=== PATIENT | female | born 1985 | race Caucasian/White ===

== ENCOUNTER 2016-11-18 07:14 | Emergency (ER) | payer MEDICAID ==
--- NOTE | 2016-11-18 07:34 | EDM.PDOC ---
ED HPI GENERAL MEDICAL PROBLEM - General Chief Complaint: Back Pain or Injury Stated Complaint: BACK PAIN Time Seen by Provider: 11/18/16 07:28 Source of Information: Reports: Patient History Limitations: Reports: No Limitations - History of Present Illness INITIAL COMMENTS - FREE TEXT/NARRATIVE: 31 yo female presents with left lower back pain. States that she was at work and picked up a coffee pot and when she went to walk away her "back locked up on me and I couldnt move". She took two Flexerils with no relief. Has a history of herniated disk and previous back surgeries. C/o pain to left leg with some numbness. No other complaints currently. 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) 9 Pain Score (Numeric/FACES): 9 - Related Data Allergies Allergy/AdvReac Type Severity Reaction Status Date / Time No Known Allergies Allergy Verified 02/08/16 11:55 Home Meds: Home Meds Albuterol Sulfate [Albuterol Sulfate HFA] 2 puff INH ASDIRECTED PRN 02/26/13 [ History] FLUoxetine [PROzac] DAILY 11/18/16 [History] Past Medical History Other HEENT History: wears glasses Cardiovascular History: Reports: None Respiratory History: Reports: Asthma Other Gastrointestinal History: food poisoning Genitourinary History: Reports: None 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 Neurological History: Reports: Migraines Psychiatric History: Reports: Depression Endocrine/Metabolic History: Reports: Obesity/BMI 30+ Hematologic History: Reports: None Oncologic (Cancer) History: Reports: None Dermatologic History: Reports: Eczema - Infectious Disease History Infectious Disease History: Reports: Chicken Pox - Past Surgical History HEENT Surgical History: Reports: Other (See Below) Musculoskeletal Surgical History: Reports: Other (See Below) Social & Family History - Family History Family Medical History: Noncontributory - Tobacco Use Smoking Status *Q: Current Every Day Smoker Years of Tobacco use: 16 Packs/Tins Daily: 0.5 Month Tobacco Last Used: t Second Hand Smoke Exposure: Yes - Caffeine Use Caffeine Use: Reports: Coffee, Energy Drinks, Soda - Alcohol Use Days Per Week of Alcohol Use: 1 Number of Drinks Per Day: 1 Total Drinks Per Week: 1 - Recreational Drug Use Recreational Drug Use: No - Sexual History Sexual History: Reports: Sexually Active - Living Situation & Occupation Living situation: Reports: with Significant Other Occupation: Unemployed ED ROS GENERAL - Review of Systems Review Of Systems: ROS reveals no pertinent complaints other than HPI. ED EXAM,LOWER BACK PAIN/INJURY - Physical Exam Exam: See Below Exam Limited By: No Limitations General Appearance: Alert, WD/WN, No Apparent Distress Eye Exam: Bilateral Eye: Normal Inspection Neck: Normal Inspection, Supple, Non-Tender, Full Range of Motion Respiratory/Chest: No Respiratory Distress, Lungs Clear, Normal Breath Sounds, No Accessory Muscle Use, Chest Non-Tender Cardiovascular: Normal Peripheral Pulses, Regular Rate, Rhythm, No Edema, No Gallop, No JVD, No Murmur, No Rub GI/Abdominal: Normal Bowel Sounds, Soft, Non-Tender, No Organomegaly, No Distention, No Abnormal Bruit, No Mass Back Exam: Normal Inspection, Full Range of Motion, Muscle Spasm (left lower back) Extremities: Normal Inspection, Non-Tender, No Pedal Edema, Normal Capillary Refill, Leg Pain, Limited Range of Motion (left leg, unable to completely extend while flat due to pain), Other (No saddle anasthesia) Neurological: Alert, Normal Mood/Affect, Normal Dorsiflexion, CN II-XII Intact, Normal Plantar Flexion, Normal Gait, Normal Reflexes, No Motor/Sensory Deficits , Oriented x 3, Straight Leg Raise (L) Psychiatric: Normal Affect, Normal Mood Skin Exam: Warm, Dry, Intact, Normal Color, No Rash Lymphatic: No Adenopathy Course - Vital Signs Last Recorded V/S: Last Vital Signs Temp 97.2 F 11/18/16 07:31 Pulse 85 11/18/16 07:31 Resp 20 11/18/16 07:31 BP 150/86 H 11/18/16 07:31 Pulse Ox 99 11/18/16 07:31 - Orders/Labs/Meds Orders: Active Orders 24 hr Category Date Time Status Lumbar Spine 2 or 3V [CR] Urgent Exams 11/18/16 07:39 Ordered Orphenadrine [Norflex] Med 11/18/16 07:45 Active 60 mg IM Q12H Medication Orders Orphenadrine Citrate (Norflex) 60 mg IM Q12H ZURI Last Admin: 11/18/16 07:53 Dose: 60 mg Meds: Medications Generic Name Dose Route Start Last Admin Trade Name Candice PRN Reason Stop Dose Admin Orphenadrine Citrate 60 mg 11/18/16 07:45 11/18/16 07:53 Norflex IM 60 mg Q12H ZURI Administration Discontinued Medications Generic Name Dose Route Start Last Admin Trade Name Freq PRN Reason Stop Dose Admin Gabapentin 300 mg 11/18/16 08:24 11/18/16 08:38 Neurontin PO 11/18/16 08:25 300 mg ONETIME ONE Administration Ketorolac Tromethamine 30 mg 11/18/16 07:40 11/18/16 07:54 Toradol IM 11/18/16 07:41 30 mg ONETIME ONE Administration - Radiology Interpretation Free Text/Narrative:: Mild osteophyte at T12 and L5. No acute fractures noted. No disc space narrowing noted. - Re-Assessments/Exams Free Text/Narrative Re-Assessment/Exam: 11/18/16 08:22 Pt states that she is still having sharp pinching pain to lower back. will add gabapentin to regimen Departure - Departure Time of Disposition: 08:48 Disposition: Home, Self-Care 01 Condition: Good Clinical Impression: Sciatica Qualifiers: Laterality: left Qualified Code(s): M54.32 - Sciatica, left side - Discharge Information Instructions: Sciatica, Back Pain, Adult, [id number] Forms: ED Department Discharge Additional Instructions: get some rest the next few days. Stay hydrated with water. Take medications as needed. Follow up with your PCP or in clinic. - My Orders Last 24 Hours: My Active Orders 11/18/16 07:39 Lumbar Spine 2 or 3V [CR] Urgent 11/18/16 07:45 Orphenadrine [Norflex] 60 mg IM Q12H - Assessment/Plan Last 24 Hours: My Active Orders 11/18/16 07:39 Lumbar Spine 2 or 3V [CR] Urgent 11/18/16 07:45 Orphenadrine [Norflex] 60 mg IM Q12H
[2016-11-18 07:37] VITALS: BP 150/86
[2016-11-18] MEDS ORDERED: Ketorolac 30 MG/ML SDV IM ONE (07:40)
[2016-11-18] MEDS ORDERED: Gabapentin 300 MG Cap PO ONE (08:24)
== END 2016-11-18 08:51 | disposition home or self-care (01) ==
LOC: DL.ED 07:14
DX: M54.42 Lumbago with sciatica, left side (principal); J45.909 Unspecified asthma, uncomplicated; F32.9 Major depressive disorder, single episode, unspecified; E66.9 Obesity, unspecified; F17.210 Nicotine dependence, cigarettes, uncomplicated; Z79.899 Other long term (current) drug therapy; Z68.37 Body mass index [BMI] 37.0-37.9, adult
CPT/HCPCS: 72100; 96372; 99283; A9270; J1885; J2360

== ENCOUNTER 2017-02-11 16:04 | Emergency (ER) | payer BC ==
[2017-02-11 16:12] VITALS: BP 135/89
[2017-02-11] MEDS ORDERED: Clindamycin HCl 150 MG Cap PO ONE (17:20)
--- NOTE | 2017-02-11 17:28 | EDM.PDOC ---
ED HPI GENERAL MEDICAL PROBLEM - General Chief Complaint: Skin Complaint Stated Complaint: BREAST PROBLEMS,[id number] Time Seen by Provider: 02/11/17 17:22 Source of Information: Reports: Patient History Limitations: Reports: No Limitations - History of Present Illness INITIAL COMMENTS - FREE TEXT/NARRATIVE: This 31 yo female patient reports to the ED with swelling and pain in her right breast. The patient reports she noticed a small pimple on her right nipple 5 days ago. The patient reports increased pain and swelling in the area over the past 5 days. The patient reports she has not had any drainage from the area. Onset: Gradual Onset Date: 02/07/17 Duration: Constant, Getting Worse Location: Reports: Chest (right breast) Quality: Reports: Ache, Sharp, Throbbing Severity: Moderate Improves with: Reports: None Worsens with: Reports: None Right Breast Pain Score (Numeric/FACES): 8 - Related Data Allergies Allergy/AdvReac Type Severity Reaction Status Date / Time No Known Allergies Allergy Verified 02/11/17 16:16 Home Meds: Home Meds FLUoxetine [PROzac] 20 mg PO DAILY 11/18/16 [History] Ibuprofen 600 mg PO ASDIRECTED PRN 02/11/17 [History] Past Medical History HEENT History: Reports: Impaired Vision Other HEENT History: wears glasses Cardiovascular History: Reports: None Respiratory History: Reports: Asthma Other Gastrointestinal History: food poisoning Genitourinary History: Reports: None 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 Musculoskeletal History: Reports: None Neurological History: Reports: Migraines Psychiatric History: Reports: Depression Endocrine/Metabolic History: Reports: Obesity/BMI 30+ Hematologic History: Reports: None Immunologic History: Reports: None Oncologic (Cancer) History: Reports: None Dermatologic History: Reports: Eczema - Infectious Disease History Infectious Disease History: Reports: Chicken Pox - Past Surgical History Head Surgeries/Procedures: Reports: None HEENT Surgical History: Reports: Other (See Below) Social & Family History - Family History Family Medical History: Noncontributory - Tobacco Use Smoking Status *Q: Current Every Day Smoker Years of Tobacco use: 14 Packs/Tins Daily: 0.5 Month Tobacco Last Used: t Second Hand Smoke Exposure: No - Caffeine Use Caffeine Use: Reports: Coffee, Soda - Alcohol Use Days Per Week of Alcohol Use: 1 Number of Drinks Per Day: 1 Total Drinks Per Week: 1 - Recreational Drug Use Recreational Drug Use: No Recreational Drug Type: Reports: Marijuana/Hashish - Sexual History Sexual History: Reports: Sexually Active - Living Situation & Occupation Living situation: Reports: with Significant Other Occupation: Unemployed ED ROS GENERAL - Review of Systems Review Of Systems: ROS reveals no pertinent complaints other than HPI. ED EXAM, SKIN/RASH Exam: See Below Exam Limited By: Other General Appearance: WD/WN, Moderate Distress, Obese Eye Exam: Bilateral Eye: EOMI, Normal Inspection, PERRL Ears: Normal External Exam, Normal Canal, Hearing Grossly Normal, Normal TMs Nose: Normal Inspection, Normal Mucosa, No Blood Throat/Mouth: Normal Inspection, Normal Lips, Normal Teeth, Normal Gums, Normal Oropharynx, Normal Voice, No Airway Compromise Head: Atraumatic, Normocephalic Neck: Normal Inspection, Supple, Non-Tender, Full Range of Motion Respiratory/Chest: No Respiratory Distress, Lungs Clear, Normal Breath Sounds, No Accessory Muscle Use, Chest Non-Tender Cardiovascular: Normal Peripheral Pulses, Regular Rate, Rhythm, No Edema, No Gallop, No JVD, No Murmur, No Rub GI/Abdominal: Normal Bowel Sounds, Soft, Non-Tender, No Organomegaly, No Distention, No Abnormal Bruit, No Mass (Female) Exam: Deferred Rectal (Female) Exam: Deferred Back Exam: Normal Inspection, Full Range of Motion, NT Extremities: Normal Inspection, Normal Range of Motion, Non-Tender, No Pedal Edema, Normal Capillary Refill Neurological: Alert, Oriented, CN II-XII Intact, Normal Cognition, Normal Gait, Normal Reflexes, No Motor/Sensory Deficits Psychiatric: Normal Affect, Normal Mood Skin: Erythema (right ) Location, Skin: Other (right breast) Characteristics: Erythematous Associated features: Warmth, Tenderness, Swelling Lymphatic: No Adenopathy Course - Vital Signs Last Recorded V/S: Last Vital Signs Temp 36.4 C 02/11/17 16:11 Pulse 88 02/11/17 16:11 Resp 18 02/11/17 16:11 BP 135/89 02/11/17 16:11 Pulse Ox 99 02/11/17 16:11 - Orders/Labs/Meds Meds: Medications Discontinued Medications Generic Name Dose Route Start Last Admin Trade Name Freq PRN Reason Stop Dose Admin Clindamycin HCl 300 mg 02/11/17 17:20 Cleocin PO 02/11/17 17:21 ONETIME ONE Departure - Departure Time of Disposition: 17:28 Disposition: Home, Self-Care 01 Condition: Fair Clinical Impression: Breast abscess - Discharge Information Instructions: Abscess, [id number] Care Plan Goals: The patient was advised of the examination results during the visit. The patient was given an oral dose of Clindamycin (300 mg) while in the ED. The patient was discharged with a script for Clindamycin (300 mg) #56 to take 1 by mouth 4 times per day for 14 days. The patient should apply warm packs to the area. The patient should follow-up with her primary care facility in 5-10 days for continued evaluation and further management. If the patient has any additional symptoms or concerns, the patient should visit her primary care facility or return to the ED.
== END 2017-02-11 17:39 | disposition home or self-care (01) ==
LOC: DL.ED 16:04
DX: N61.1 Abscess of the breast and nipple (principal); F17.210 Nicotine dependence, cigarettes, uncomplicated; Z79.899 Other long term (current) drug therapy
CPT/HCPCS: 99282; A9270

== ENCOUNTER 2018-05-06 05:42 | Inpatient (IN) | payer BC, MEDICAID ==
[2018-05-06] MEDS ORDERED: hydrOXYzine HCl 25 MG Tab PO ONE (08:18)
[2018-05-06] MEDS ORDERED: Nalbuphine 10 MG/1 ML Vial IM ONE (13:47)
[2018-05-06] MEDS ORDERED: Ondansetron 4 MG/2 ML SDV IV PRN (13:49)
[2018-05-06] MEDS ORDERED: Nalbuphine 10 MG/1 ML Vial IV ONE (13:49)
[2018-05-06] MEDS: Lactated Ringers 1,000 ML IV SCH ×2 (14:47→21:32)
[2018-05-06] MEDS ORDERED: fentaNYL 100 MCG/2 ML SDV ONE (14:59)
[2018-05-06] MEDS ORDERED: EPINEPHrine 1 MG/ML SDV ONE (14:59)
[2018-05-06] MEDS ORDERED: Carboprost Tromethamine 250 MCG/1 ML Amp IM PRN (15:00)
[2018-05-06] MEDS ORDERED: Misoprostol 400 MCG (4 X 100 MCG TAB) RECTAL PRN (15:00)
[2018-05-06] MEDS ORDERED: Oxytocin/Normal Saline 30 UNIT/500 ML BAG IV SCH (15:00)
[2018-05-06] MEDS ORDERED: Lactated Ringers 500 ML IV ONE (15:00)
[2018-05-06] MEDS ORDERED: Lidocaine 1% 30 ML SDV INJECT PRN (15:00)
[2018-05-06] MEDS ORDERED: Acetaminophen 325 MG Tab PO PRN (15:00)
[2018-05-06] MEDS ORDERED: Sodium Chloride 0.9% 10 ML Syringe FLUSH PRN (15:00)
[2018-05-06] MEDS ORDERED: Tranexamic Acid 1,000 MG in Sodium Chloride 0.9% 100 ML IV PRN (15:00)
[2018-05-06] MEDS ORDERED: Methylergonovine 0.2 MG/1 ML Amp IM PRN (15:00)
--- NOTE | 2018-05-06 15:11 | PCM.LDHP ---
L&D History of Present Illness - General Date of Service: 05/06/18 (admit H&P) Admit Problem/Dx: Patient Status Order with Admit Dx/Problem 05/06/18 15:01 Patient Status [ADT] Routine Admission Diagnosis/Problem Admission Diagnosis/Problem Labor established term labor 33yo @ 39w6d with onset labor cxns and elevated BP, r/o pre-eclampsia 05/06/18 15:06 Source of Information: Patient, Family, Old Records, Provider, Other ([facility] notes and episode) - History of Present Illness Introduction:: onset cxns about 4 a.m., getting stronger. baby active. no pre-eclampsia sx. no bleeding or LOF increased mucousy discharge noted. Timing/Duration: Reports: minutes: (3-5), gradual onset Location, : Reports: Uterus Severity: Moderate Pain Score: 8 (getting stronger) Associated Symptoms: Reports: vaginal discharge - Related Data Allergies/Adverse Reactions: Allergies Allergy/AdvReac Type Severity Reaction Status Date / Time hydrocodone AdvReac Intermediate Vomiting Verified 05/06/18 06:14 Home Medications: Home Meds Vit Calc,Iron,Folic [ Vitamins] 1 tab PO DAILY 10/19/17 [ History] Past Medical History HEENT History: Reports: Impaired Vision Other HEENT History: wears glasses Cardiovascular History: Reports: None Respiratory History: Reports: Asthma Other Gastrointestinal History: food poisoning Genitourinary History: Reports: UTI, Recurrent 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) Para: 0 LMP (Approximate): Musculoskeletal History: Reports: Back Pain, Chronic, Other (See Below) Other Musculoskeletal History: herniated disc Neurological History: Reports: Migraines Psychiatric History: Reports: Depression Endocrine/Metabolic History: Reports: Obesity/BMI 30+ Hematologic History: Reports: None Immunologic History: Reports: None Oncologic (Cancer) History: Reports: None Dermatologic History: Reports: Chronic Cellulitis (breast abscess--right side, drained multiple times), Eczema - Infectious Disease History Infectious Disease History: Reports: Chicken Pox - Past Surgical History Head Surgeries/Procedures: Reports: None HEENT Surgical History: Reports: Other (See Below) Female Surgical History: Reports: Other (See Below) (chronic breast abscess right side) Dermatological Surgical History: Reports: Other (See Below) (breast abscess) Social & Family History - Family History Family Medical History: Noncontributory - Tobacco Use Smoking Status *Q: Current Every Day Smoker Years of Tobacco use: 16 Packs/Tins Daily: 0.5 Used Tobacco, but Quit: No Second Hand Smoke Exposure: Yes - Tobacco Core Measures Tobacco Use/Smoking Within Last 30 Days: Yes Smoking Frequency Within Last 30 Days: Reports: Five or More Cigarettes Per Day - Caffeine Use Caffeine Use: Reports: Coffee, Soda - Alcohol Use Alcohol Use Comment: denies - Recreational Drug Use Recreational Drug Use: Yes Drug Use in Last 12 Months: Yes Recreational Drug Type: Reports: Marijuana/Hashish Recreational Drug Use Frequency: Not Used In Over 1 Month Recreational Drug Last Use: 4 weeks ago Recreational Drug Use Comment: was smoking pot during . Had multiple positive UDS for cannabinoids during . - Sexual History Sexual History: Reports: Sexually Active - Living Situation & Occupation Living situation: Reports: , with Significant Other Occupation: Employed (working at [employer] for 3 years.) Social History Comment: just started working at [employer] recently. H&P Review of Systems - Review of Systems: Review Of Systems: ROS reveals no pertinent complaints other than HPI. General: Reports: No Symptoms HEENT: Reports: No Symptoms Pulmonary: Reports: No Symptoms Cardiovascular: Reports: No Symptoms Gastrointestinal: Reports: No Symptoms Genitourinary: Reports: No Symptoms Musculoskeletal: Reports: No Symptoms Skin: Reports: No Symptoms Psychiatric: Reports: No Symptoms Neurological: Reports: No Symptoms Hematologic/Lymphatic: Reports: No Symptoms Immunologic: Reports: No Symptoms L&D Exam - Exam Exam: See Below - Vital Signs Vital Signs: Last Vital Signs Temp 98.3 F 05/06/18 07:52 Pulse 73 05/06/18 12:00 Resp 16 05/06/18 06:05 BP 126/67 05/06/18 12:00 Pulse Ox Weight: 240 lb - OB Specific Contraction Duration (sec): 60-90 Contraction Frequency (min): 3-5 Contraction Intensity: Mild to Moderate - Shay Score Shay Score Cervix Position: Midposition Shay Score Consistency: Soft Shay Score Effacement: >80% Shay Score Dilation: 3-4 cm Shay Score 's Station: -1 ,0 Shay Score Total: 10 - Exam General: Alert, Oriented HEENT: PERRLA, Conjunctiva Clear, EACs Clear, EOMI, Hearing Intact, Mucosa Moist & [place], Nares Patent, Normal Nasal Septum, Posterior Pharynx Clear, TMs Clear Neck: Supple, Trachea Midline Lungs: Clear to Auscultation, Normal Respiratory Effort Cardiovascular: Regular Rate, Regular Rhythm GI/Abdominal Exam: Normal Bowel Sounds, Soft, Non-Tender Rectal Exam: Normal Exam, Deferred Genitourinary: Normal external exam, Normal bimanual exam, Cervical discharge, Enlarged uterus, Vaginal discharge Back Exam: Normal Inspection Extremities: Normal Inspection, Normal Range of Motion, Non-Tender, Normal Capillary Refill, Pedal Edema (trace) Skin: Warm, Dry, Intact, Rash (old abscess area right breast near areola, eczema hands) Neurological: Cranial Nerves Intact, Reflexes Equal Bilateral Psychiatric: Alert, Normal Affect, Normal Mood - Patient Data Lab Results Last 24 hrs: Laboratory Results - last 24 hr 05/06/18 05/06/18 05/06/18 Range/Units 06:10 06:10 06:48 WBC 16.1 H (5.0-10.0) 10^3/uL RBC 4.66 (4.2-5.4) 10^6/uL Hgb 14.1 (12.0-16.0) g/dL Hct 41.8 (37.0-47.0) % MCV 89.7 (80-100) fL MCH 30.3 (27.0-34.0) pg MCHC 33.7 (33.0-35.0) g/dL Plt Count 218 (150-450) 10^3/uL BUN (7-18) mg/dL Uric Acid (2.6-7.2) mg/dL AST (10-42) IU/L ALT (10-60) IU/L Lactate Dehydrogenase (91-180) IU/L Creatine Kinase (26-174) IU/L Ur Random Creatinine 70 mg/dL U Random Total Protein 13 H (0.00-9.9) mg/dL Protein/Creatinin Ratio 0.18 Urine Opiates Screen Negative (NEGATIVE) Ur Oxycodone Screen Negative (NEGATIVE) Urine Methadone Screen Negative (NEGATIVE) Ur Barbiturates Screen Negative (NEGATIVE) U Tricyclic Antidepress Negative (NEGATIVE) Ur Phencyclidine Scrn Negative (NEGATIVE) Ur Amphetamine Screen Negative (NEGATIVE) U Methamphetamines Scrn Negative (NEGATIVE) Urine MDMA Screen Negative (NEGATIVE) U Benzodiazepines Scrn Negative (NEGATIVE) Urine Cocaine Screen Negative (NEGATIVE) U Marijuana (THC) Screen Negative (NEGATIVE) 05/06/18 Range/Units 06:48 WBC (5.0-10.0) 10^3/uL RBC (4.2-5.4) 10^6/uL Hgb (12.0-16.0) g/dL Hct (37.0-47.0) % MCV (80-100) fL MCH (27.0-34.0) pg MCHC (33.0-35.0) g/dL Plt Count (150-450) 10^3/uL BUN 8 (7-18) mg/dL Uric Acid 5.1 (2.6-7.2) mg/dL AST 20 (10-42) IU/L ALT 9 L (10-60) IU/L Lactate Dehydrogenase 100 (91-180) IU/L Creatine Kinase 29 (26-174) IU/L Ur Random Creatinine mg/dL U Random Total Protein (0.00-9.9) mg/dL Protein/Creatinin Ratio Urine Opiates Screen (NEGATIVE) Ur Oxycodone Screen (NEGATIVE) Urine Methadone Screen (NEGATIVE) Ur Barbiturates Screen (NEGATIVE) U Tricyclic Antidepress (NEGATIVE) Ur Phencyclidine Scrn (NEGATIVE) Ur Amphetamine Screen (NEGATIVE) U Methamphetamines Scrn (NEGATIVE) Urine MDMA Screen (NEGATIVE) U Benzodiazepines Scrn (NEGATIVE) Urine Cocaine Screen (NEGATIVE) U Marijuana (THC) Screen (NEGATIVE) Result Diagrams: 05/06/18 06:48 05/06/18 06:48 - Problem List (1) Term SNOMED Code(s): 23123241 ICD Code: Z34.80 - ENCOUNTER FOR SUPRVSN OF NORMAL , UNSP TRIMESTER Status: Acute Current Visit: Yes (2) First stage of labor established SNOMED Code(s): 371531067 ICD Code: RDM4263 - Status: Acute Current Visit: Yes (3) Gestational hypertension without significant proteinuria SNOMED Code(s): 440235659 ICD Code: O13.9 - GESTATIONAL HTN W/O SIGNIFICANT PROTEINURIA, UNSP TRIMESTER Status: Acute Current Visit: Yes (4) Blood type O+ SNOMED Code(s): 233782052 ICD Code: Z67.40 - TYPE O BLOOD, RH POSITIVE Status: Acute Current Visit : Yes (5) Primigravida SNOMED Code(s): 723157034 ICD Code: Z34.00 - ENCNTR FOR SUPRVSN OF NORMAL FIRST , UNSP TRIMESTER Status: Acute Current Visit: Yes (6) Rubella immune SNOMED Code(s): 988297320 ICD Code: Z78.9 - OTHER SPECIFIED HEALTH STATUS Status: Acute Current Visit: Yes (7) Group B Streptococcus not isolated SNOMED Code(s): 887932193 ICD Code: JXL0006 - Status: Acute Current Visit: Yes (8) Marijuana use SNOMED Code(s): 025406215 ICD Code: F12.90 - CANNABIS USE, UNSPECIFIED, UNCOMPLICATED Status: Acute Current Visit: Yes (9) Moderate cigarette smoker (10-19 per day) Status: Acute Current Visit: Yes (10) Depression affecting , antepartum SNOMED Code(s): 35479993 ICD Code: O99.340 - OTH MENTAL DISORDERS COMPLICATING , UNSP TRIMESTER; F32.9 - MAJOR DEPRESSIVE DISORDER, SINGLE EPISODE, UNSPECIFIED Status: Acute Current Visit: Yes Problem List Initiated/Reviewed/Updated: Yes Orders Last 24hrs: Active Orders 24 hr Category Date Time Status Patient Status [ADT] Routine ADT 05/06/18 15:01 Ordered Communication Order [RC] ASDIRECTED Care 05/06/18 15:01 Ordered Heart Tones [RC] PER UNIT ROUTINE Care 05/06/18 15:01 Ordered Non Stress Test [RC] PER UNIT ROUTINE Care 05/06/18 15:02 Ordered Notify Provider [RC] PRN Care 05/06/18 15:01 Ordered OB Check [OM.PC] Click To Edit Care 05/06/18 06:38 Ordered Pump Management, Intrathecal [RC] ASDIRECTED Care 05/06/18 15:03 Ordered Up ad Geri [RC] ASDIRECTED Care 05/06/18 15:01 Ordered Vital Signs [RC] PER UNIT ROUTINE Care 05/06/18 15:01 Ordered Acetaminophen [Tylenol] Med 05/06/18 15:00 Ordered 650 mg PO Q4H PRN Carboprost Tromethamine [Hemabate DS] Med 05/06/18 15:00 Ordered 250 mcg IM ASDIRECTED PRN Lactated Ringers @ 125 MLS/HR(1000ml) Med 05/06/18 15:00 Ordered Lactated Ringers [Ringers, Lactated] 1,000 ml IV ASDIRECTED Lactated Ringers [Ringers, Lactated] 500 ml Med 05/06/18 15:00 Ordered IV .BOLUS Lidocaine 1% [Xylocaine-MPF 1%] Med 05/06/18 15:00 Ordered 30 ml INJECT ASDIRECTED PRN Methylergonovine [Methergine] Med 05/06/18 15:00 Ordered 0.2 mg IM ASDIRECTED PRN Ondansetron [Zofran] Med 05/06/18 13:49 Active 4 mg IV Q4H PRN Oxytocin 30 Units in NS @ 2 MUNITS/MIN(500ml) Med 05/06/18 15:00 Ordered Oxytocin/Normal Saline [Pitocin in NS 30 UNIT/500 ML] 30 unit in 500 ml IV TITRATE Sodium Chloride 0.9% [Saline Flush] Med 05/06/18 15:00 Ordered 10 ml FLUSH ASDIRECTED PRN Tranexamic Acid [Cyklokapron] 1,000 mg Med 05/06/18 15:00 Ordered Sodium Chloride 0.9% [Normal Saline] 100 ml IV ONETIME miSOPROStol [Cytotec] Med 05/06/18 15:00 Ordered 800 mcg RECTAL ASDIRECTED PRN Heart Monitor External [WOMSER] Routine Oth 05/06/18 06:38 Ordered Saline Lock Insert [OM.PC] Routine Oth 05/06/18 15:01 Ordered Resuscitation Status Routine Resus Stat 05/06/18 15:00 Ordered Medication Orders Ondansetron HCl (Zofran) 4 mg IV Q4H PRN PRN Reason: Nausea/Vomiting Assessment/Plan Comment:: Assessment: 33yo @ 39w6d in active labor Primigravida Gestational hypertension without pre-eclampsia Blood type O+ rubella immune Group b strep negative smoker depression marijuana use NST reactive, reassuring Plan: admit with routine admit orders. contractions slowed after some vistaril, cervix 4-5 cm, and pitocin augmentation started after discussion. Pt desiring intrathecal, and was placed @ 5-6cm. will continue to monitor. AROM. planning for vaginal delivery, she understands need for intervention if status changes. further management pending her course in labor. continue to monitor baby closely. all questions answered. zeb
--- NOTE | 2018-05-06 15:46 | PCM.SN ---
- Free Text/Narrative Note: DOS: 05-06-18 Progress note 1545 pt had intrathecal placed without difficulty. cervix now 6+ completely effaced. ROP Pitocin infusing. doing well. good relief from intrathecal. continue to monitor closely. will change her position to see if we can get baby to turn and deliver. all questions answered. b
--- NOTE | 2018-05-06 16:15 | PCM.PRNOTE ---
- Free Text/Narrative Note: Requested to provide analgesia to full term patient in severe pain. Upon entering the room, patient is sitting on edge of bed complaining of severe abdominal/pelvic pain and discomfort. Procedure was discussed with patient including adverse outcomes and expectations. Pt consented to analgesia, SAB/ IT. Pt placed into a proper sitting position. Landmarks for SAB/IT were identified and marked. Hands were washed and appropriate PPE was applied. Back was prepped with betadine x3. A sterile, transparent, fenestrated drape was applied. Excess betadine was removed. Using 3 mL of a 1% lidocaine solution , a skin wheel was placed at the L2/L3 interspace. A 24 ga (4 inch) Pencan spinal needle was inserted until positive for CSF. Negative for heme or paresthesias. Injected fentanyl 30 mcg, sufentanil 25 mcg, and 9 mg of a 0.75% bupivacaine solution with an epi wash. Pt was placed left lateral position for approximately 20 minutes. There were zero complications or adverse outcomes. Will continue to monitor. Procedure Date & Time: 05-06-18 [id number]
--- NOTE | 2018-05-06 19:04 | PCM.DEL ---
L & D Note - General Info Date of Service: 05/06/18 - Delivery Note Labor: Spontaneous, Augmented by ARM, Augmented by Oxytocin Cervical Ripening Method: Misoprostil Delivery Outcome: Livebirth Delivery Method: Spontaneous Vaginal Delivery-Single Infant Delivery Mode: Vacuum Extraction Presentation: Left Occiput Anterior (JUSTINA) Nuchal Cord: None Prep: Povidone-Iodine (Betadine Anesthesia Type: Intrathecal Amniotic Fluid Description: Meconium Stained Laceration: 1st Degree, Vaginal (left posterior vaginal wall. Closed with running locking. ) Suture type: Vicryl Suture size: 3-0 Placenta: Intact, Spontaneous Cord: 3 Vessels Estimated Blood Loss: 300 Resuscitation Needed: No Chloride: Suctioned, Bulb Syringe, Stimulated, [place] Used Provider: Alejandra Gonzalez Score 1 min: 8 Score 5 min: 9 Second Stage Interventions: Reports: Laboring Down, Pushing, McRobert's Position Delivery Comments (Free Text/Narrative):: Patient is 33 y/o who presented at 39 wk 6d with contractions since 4 am this morning. Patient received Cytotec, Pitocin and Methergine for augmentation of labor. Intrathecal controlled pain very well. Patient pushed for 9 minutes. Vacuum was placed, baby head came out with one pull. Baby was covered in meconium. Baby had nasal and oral suction, stimulation and cleaning. Delivered placenta spontaneously. Placenta was intact, 3 vessel-cord. There was a small periurethral laceration that did not need repair. There was a small 1st degree laceration on the left posterior vaginal wall that was closed with running locking with 3-0 Vicryl suture. Induction Criteria - Augmentation Estimated Pelvis: Reports: Adequate Weight Estimated:: Reports: AGA Reassuring Monitoring Strip: Yes Vacuum Extractor Progress Note - Alternative Labor Strategies Considered Alternative Labor Strategies Considered:: Reports: No Indications Considered:: Reports: No - Application Time Type of Vacuum Used:: Reports: Cup: [place] type Vacuum Extraction: Successful Comments:: Vacuum applied with one push only - General Info Date of Service: 05/06/18 Admission Dx/Problem (Free Text): Patient Status Order with Admit Dx/Problem 1. Term labor- 39 week 6 days 2. Blood type O+; GBS negative; rubella immune 3. Smoking in 4. Marijuana use in , quit for the past month 5. Depression in , on fluoxetine 6. Primigravida 7. HTN in , no pre-eclampsia. Subjective Update: Delivered baby boy Functional Status: Reports: Pain Controlled - Patient Data Vitals - Most Recent: Last Vital Signs Temp 98.3 F 05/06/18 07:52 Pulse 73 05/06/18 12:00 Resp 16 05/06/18 06:05 BP 126/67 05/06/18 12:00 Pulse Ox Weight - Most Recent: 240 lb Lab Results Last 24 Hours: Laboratory Results - last 24 hr 05/06/18 05/06/18 05/06/18 Range/Units 06:10 06:10 06:48 WBC 16.1 H (5.0-10.0) 10^3/uL RBC 4.66 (4.2-5.4) 10^6/uL Hgb 14.1 (12.0-16.0) g/dL Hct 41.8 (37.0-47.0) % MCV 89.7 (80-100) fL MCH 30.3 (27.0-34.0) pg MCHC 33.7 (33.0-35.0) g/dL Plt Count 218 (150-450) 10^3/uL BUN (7-18) mg/dL Uric Acid (2.6-7.2) mg/dL AST (10-42) IU/L ALT (10-60) IU/L Lactate Dehydrogenase (91-180) IU/L Creatine Kinase (26-174) IU/L Ur Random Creatinine 70 mg/dL U Random Total Protein 13 H (0.00-9.9) mg/dL Protein/Creatinin Ratio 0.18 Urine Opiates Screen Negative (NEGATIVE) Ur Oxycodone Screen Negative (NEGATIVE) Urine Methadone Screen Negative (NEGATIVE) Ur Barbiturates Screen Negative (NEGATIVE) U Tricyclic Antidepress Negative (NEGATIVE) Ur Phencyclidine Scrn Negative (NEGATIVE) Ur Amphetamine Screen Negative (NEGATIVE) U Methamphetamines Scrn Negative (NEGATIVE) Urine MDMA Screen Negative (NEGATIVE) U Benzodiazepines Scrn Negative (NEGATIVE) Urine Cocaine Screen Negative (NEGATIVE) U Marijuana (THC) Screen Negative (NEGATIVE) 05/06/18 Range/Units 06:48 WBC (5.0-10.0) 10^3/uL RBC (4.2-5.4) 10^6/uL Hgb (12.0-16.0) g/dL Hct (37.0-47.0) % MCV (80-100) fL MCH (27.0-34.0) pg MCHC (33.0-35.0) g/dL Plt Count (150-450) 10^3/uL BUN 8 (7-18) mg/dL Uric Acid 5.1 (2.6-7.2) mg/dL AST 20 (10-42) IU/L ALT 9 L (10-60) IU/L Lactate Dehydrogenase 100 (91-180) IU/L Creatine Kinase 29 (26-174) IU/L Ur Random Creatinine mg/dL U Random Total Protein (0.00-9.9) mg/dL Protein/Creatinin Ratio Urine Opiates Screen (NEGATIVE) Ur Oxycodone Screen (NEGATIVE) Urine Methadone Screen (NEGATIVE) Ur Barbiturates Screen (NEGATIVE) U Tricyclic Antidepress (NEGATIVE) Ur Phencyclidine Scrn (NEGATIVE) Ur Amphetamine Screen (NEGATIVE) U Methamphetamines Scrn (NEGATIVE) Urine MDMA Screen (NEGATIVE) U Benzodiazepines Scrn (NEGATIVE) Urine Cocaine Screen (NEGATIVE) U Marijuana (THC) Screen (NEGATIVE) Med Orders - Current: Current Medications Acetaminophen (Tylenol) 650 mg PO Q4H PRN PRN Reason: Pain (Mild 1-3) and fever Carboprost Tromethamine (Hemabate Ds) 250 mcg IM ASDIRECTED PRN PRN Reason: HEMORRHAGE Lactated Ringer's (Ringers, Lactated) 1,000 mls @ 125 mls/hr IV ASDIRECTED ZURI Oxytocin/Sodium Chloride (Pitocin In Ns 30 Unit/500 Ml) 30 unit in 500 mls @ 2 mls/hr IV TITRATE ZURI; Protocol Tranexamic Acid 1,000 mg/ (Sodium Chloride) 110 mls @ 660 mls/hr IV ONETIME PRN PRN Reason: Bleeding Lidocaine HCl (Xylocaine-Mpf 1%) 30 ml INJECT ASDIRECTED PRN PRN Reason: Perineal Repair Methylergonovine Maleate (Methergine) 0.2 mg IM ASDIRECTED PRN PRN Reason: Hemorrhage Misoprostol (Cytotec) 800 mcg RECTAL ASDIRECTED PRN PRN Reason: Hemorrhage Ondansetron HCl (Zofran) 4 mg IV Q4H PRN PRN Reason: Nausea/Vomiting Sodium Chloride (Saline Flush) 10 ml FLUSH ASDIRECTED PRN PRN Reason: Keep Vein Open Discontinued Medications Epinephrine HCl (Adrenalin) Confirm Administered Dose 1 mg .ROUTE .STK-MED ONE Stop: 05/06/18 15:00 Last Admin: 05/06/18 18:39 Dose: Not Given Fentanyl (Sublimaze) Confirm Administered Dose 100 mcg .ROUTE .STK-MED ONE Stop: 05/06/18 15:00 Last Admin: 05/06/18 18:39 Dose: Not Given Hydroxyzine HCl (Atarax) 50 mg PO ONETIME ONE Stop: 05/06/18 08:19 Last Admin: 05/06/18 08:27 Dose: 50 mg Lactated Ringer's (Ringers, Lactated) 500 mls @ 500 mls/hr IV .BOLUS ONE Stop: 05/06/18 15:59 Nalbuphine HCl (Nubain) 20 mg IM ONETIME ONE Stop: 05/06/18 13:48 Nalbuphine HCl (Nubain) 5 mg IV ONETIME ONE Stop: 05/06/18 13:50 Last Admin: 05/06/18 14:00 Dose: 5 mg Sufentanil Citrate (Sufenta) Confirm Administered Dose 50 mcg .ROUTE .STK-MED ONE Stop: 05/06/18 15:00 Last Admin: 05/06/18 18:39 Dose: Not Given - Problem List Review Problem List Initiated/Reviewed/Updated: Yes - Assessment Assessment:: Allyssa is a 33 y/o woman G1, now para 1-0-0-1, who had an uncomplicated spontaneous vaginal delivery. Delivered a healthy, term, male. - Plan Plan:: Assessment: 33yo , now @ 39w6d in active labor; delivered. Primigravida Gestational hypertension without pre-eclampsia Blood type O+ rubella immune Group b strep negative smoker depression marijuana use NST reactive, reassuring Plan: 1. Routine cares 2. Baby in room with mom to initiate and [id number]. Olaf Gutiérrez, MS-III
[2018-05-06] MEDS ORDERED: Zolpidem 5 MG Tab PO PRN (19:26)
[2018-05-06] MEDS ORDERED: Benzocaine/Menthol 20%-0.5% Spray 56 GM Canister TOP PRN (19:26)
[2018-05-06] MEDS ORDERED: Simethicone 80 MG Tab.Chew PO PRN (19:26)
[2018-05-07] MEDS: Ibuprofen 800 MG Tab PO PRN ×3 (00:40→18:00)
[2018-05-07] MEDS: Docusate Sodium 100 MG Cap PO PRN ×2 (08:30→21:31)
[2018-05-07] MEDS: Prenatal Multivitamin with Calcium/Folic Acid/Iron Tab PO SCH (08:31)
--- NOTE | 2018-05-07 18:49 | PCM.PNPP ---
- General Info Date of Service: 05/07/18 Subjective Update: Tolerating diet. Ambulating independently. Pain is well controlled with oral pain medications. Some lochia, but denies passage of large clots. Passing flatus , but no BM. Initiated , but is having difficulty with latching. BASHIR Humphrey has been working with her, but her nipples are very sore and cracked. Some success using a nipple shield on the R side. Functional Status: Reports: Pain Controlled, Tolerating Diet, Ambulating, Urinating - Review of Systems General: Denies: Fever, Chills HEENT: Denies: Headaches, Visual Changes Pulmonary: Denies: Shortness of Breath, Cough, Wheezing Cardiovascular: Denies: Chest Pain, Dyspnea on Exertion, Edema Gastrointestinal: Reports: Abdominal Pain, Flatus. Denies: Nausea, Vomiting Genitourinary: Denies: Dysuria, Frequency, Burning - Patient Data Vital Signs - Most Recent: Last Vital Signs Temp 98.8 F 05/07/18 08:00 Pulse 97 05/07/18 08:00 Resp 16 05/07/18 08:00 BP 122/82 05/07/18 08:00 Pulse Ox 98 05/07/18 08:00 Weight - Most Recent: 240 lb I&O - Last 24 Hours: Intake & Output 05/07/18 05/07/18 05/07/18 06:59 14:59 22:59 Intake Total 1200 Output Total 1100 Balance 100 Med Orders - Current: Current Medications Acetaminophen (Tylenol) 650 mg PO Q4H PRN PRN Reason: Pain (Mild 1-3) and fever Benzocaine/Menthol (Dermoplast Pain Relief [place]) 0 gm TOP Q4H PRN PRN Reason: Perineal comfort measures Last Admin: 05/07/18 00:41 Dose: 1 spray Carboprost Tromethamine (Hemabate Ds) 250 mcg IM ASDIRECTED PRN PRN Reason: HEMORRHAGE Docusate Sodium (Colace) 100 mg PO BID PRN PRN Reason: Constipation Last Admin: 05/07/18 08:30 Dose: 100 mg Lactated Ringer's (Ringers, Lactated) 1,000 mls @ 125 mls/hr IV ASDIRECTED ZURI Last Admin: 05/06/18 21:32 Dose: 125 mls/hr Oxytocin/Sodium Chloride (Pitocin In Ns 30 Unit/500 Ml) 30 unit in 500 mls @ 2 mls/hr IV TITRATE ZURI; Protocol Last Titration: 05/06/18 21:55 Dose: 0 mls/hr Tranexamic Acid 1,000 mg/ (Sodium Chloride) 110 mls @ 660 mls/hr IV ONETIME PRN PRN Reason: Bleeding Ibuprofen (Motrin) 800 mg PO Q8H PRN PRN Reason: Mild Pain or Fever Last Admin: 05/07/18 18:00 Dose: 800 mg Lidocaine HCl (Xylocaine-Mpf 1%) 30 ml INJECT ASDIRECTED PRN PRN Reason: Perineal Repair Methylergonovine Maleate (Methergine) 0.2 mg IM ASDIRECTED PRN PRN Reason: Hemorrhage Misoprostol (Cytotec) 800 mcg RECTAL ASDIRECTED PRN PRN Reason: Hemorrhage Ondansetron HCl (Zofran) 4 mg IV Q4H PRN PRN Reason: Nausea/Vomiting Prenat Multivit/[place]/Iron/Folic Ac ( Plus Iron) 1 each PO DAILY ZURI Last Admin: 05/07/18 08:31 Dose: 1 each Simethicone (Simethicone) 80 mg PO Q4H PRN PRN Reason: Gas Sodium Chloride (Saline Flush) 10 ml FLUSH ASDIRECTED PRN PRN Reason: Keep Vein Open Zolpidem Tartrate (Ambien) 5 mg PO BEDTIME PRN PRN Reason: Insomnia Discontinued Medications Epinephrine HCl (Adrenalin) Confirm Administered Dose 1 mg .ROUTE .STK-MED ONE Stop: 05/06/18 15:00 Last Admin: 05/06/18 18:39 Dose: Not Given Fentanyl (Sublimaze) Confirm Administered Dose 100 mcg .ROUTE .STK-MED ONE Stop: 05/06/18 15:00 Last Admin: 05/06/18 18:39 Dose: Not Given Hydroxyzine HCl (Atarax) 50 mg PO ONETIME ONE Stop: 05/06/18 08:19 Last Admin: 05/06/18 08:27 Dose: 50 mg Lactated Ringer's (Ringers, Lactated) 500 mls @ 500 mls/hr IV .BOLUS ONE Stop: 05/06/18 15:59 Last Admin: 05/06/18 12:28 Dose: 500 mls/hr Nalbuphine HCl (Nubain) 20 mg IM ONETIME ONE Stop: 05/06/18 13:48 Last Admin: 05/06/18 20:09 Dose: Not Given Nalbuphine HCl (Nubain) 5 mg IV ONETIME ONE Stop: 05/06/18 13:50 Last Admin: 05/06/18 14:00 Dose: 5 mg Sufentanil Citrate (Sufenta) Confirm Administered Dose 50 mcg .ROUTE .STK-MED ONE Stop: 05/06/18 15:00 Last Admin: 05/06/18 18:39 Dose: Not Given - Interaction Disposition, : to Nursery Interaction: Holding Infant Feeding: Attempted ; Nursed Fair/Poor, Difficulty with Latch -on Support Person: - Recovery Exam Fundal Tone: Firm Fundal Level: 1 Fingerbreadths Below Umbilicus Fundal Placement: Midline Lochia Amount: Small Lochia Color: Rubra/Red Perineum Description: Intact, Minimal Bruising/Swelling Episiotomy/Laceration: Approximated Bladder Status: Voiding Urinary Elimination: Voided - Exam General: Alert, Oriented, Cooperative, No Acute Distress HEENT: Mucous Membr. Moist/[place] Neck: Supple Lungs: Clear to Auscultation, Normal Respiratory Effort Cardiovascular: Regular Rate, Regular Rhythm GI/Abdominal Exam: Normal Bowel Sounds, Soft, Non-Tender, No Organomegaly Extremities: Normal Inspection, No Pedal Edema, Normal Capillary Refill Skin: Warm, Dry, Intact - Problem List Review Problem List Initiated/Reviewed/Updated: Yes - Assessment Assessment:: Allyssa is a 33 y/o woman G1, now para 1-0-0-1, who had an uncomplicated spontaneous vaginal delivery. Delivered a healthy, term, male. 1. Gestational hypertension without pre-eclampsia 2. 3. O+/GBS neg/RI 4. smoker 5. depression 6. marijuana use - Plan Plan:: Plan: 1. Routine cares 2. Baby in room with mom to initiate and [id number]. Jania Coffman, MS-4
[2018-05-08] MEDS: Ibuprofen 800 MG Tab PO PRN ×2 (04:47→13:57)
[2018-05-08 07:40] VITALS: BP 111/63
[2018-05-08] MEDS ORDERED: Ondansetron 4 MG Tab.DIS PO PRN (09:02)
[2018-05-08] MEDS: Docusate Sodium 100 MG Cap PO PRN (09:33)
[2018-05-08] MEDS: Prenatal Multivitamin with Calcium/Folic Acid/Iron Tab PO SCH (09:33)
--- NOTE | 2018-05-08 11:48 | PCM.DCSUM1 ---
Discharge Summary - Hospital Course Brief History: A 33 y/o female with the above listed diagnoses presented Patient is 33 y/o who presented at 39 wk 6d with contractions since 4 am morning of arrival. Patient received Cytotec, Pitocin and Methergine for augmentation of labor. Intrathecal controlled pain very well. Patient pushed for 9 minutes. Vacuum was placed, baby head came out with one pull. Baby was covered in meconium. Baby had nasal and oral suction, stimulation and cleaning. Delivered placenta spontaneously. Placenta was intact, 3 vessel-cord. There was a small periurethral laceration that did not need repair. There was a small 1st degree laceration on the left posterior vaginal wall that was closed with running locking with 3-0 Vicryl suture. - Discharge Data Discharge Date: 05/08/18 Discharge Disposition: Home, Self-Care 01 Condition: Good - Discharge Diagnosis/Problem(s) (1) Vacuum extractor delivery, delivered SNOMED Code(s): 763849777 ICD Code: O66.5 - ATTEMPTED APPLICATION OF VACUUM EXTRACTOR AND FORCEPS Status: Acute Current Visit: Yes - Patient Summary/Data Consults: Consultations 05/06/18 19:26 Consult to Bung Driver [CONS] Routine - Discharge Plan *PRESCRIPTION DRUG MONITORING PROGRAM REVIEWED*: Not Applicable *COPY OF PRESCRIPTION DRUG MONITORING REPORT IN PATIENT DENA: Not Applicable Home Medications: Home Meds Vit Calc,Iron,Folic [ Vitamins] 1 tab PO DAILY 10/19/17 [ History] Oxygen Therapy Mode: Room Air Referrals: Alejandra Gonzalez MD [Physician] - 05/13/18 1:40 pm - Discharge Summary/Plan Comment DC Time >30 min.: Yes - General Info Date of Service: 05/08/18 Admission Dx/Problem (Free Text: Patient Status Order with Admit Dx/Problem 1. Term labor- 39 week 6 days 2. Blood type O+; GBS negative; rubella immune 3. Smoking in 4. Marijuana use in , quit for the past month 5. Depression in , on fluoxetine 6. Primigravida 7. HTN in , no pre-eclampsia. 8. Delivered healthy male. Subjective Update: Tolerating diet. Ambulating independently. Pain is well controlled with oral pain medications. Some lochia, but denies passage of large clots. Passing flatus and has had a BM. Initiated , but is having difficulty with latching and production. She is using the breast pump every 3 hours to try to stimulate production. Still wants to try to breastfeed if she can start producing. Functional Status: Reports: Pain Controlled, Tolerating Diet, Ambulating, Urinating - Review of Systems HEENT: Reports: No Symptoms Pulmonary: Reports: No Symptoms Cardiovascular: Reports: Edema (mild lower extremity edema bilaterally. ). Denies: Lightheadedness Genitourinary: Reports: Burning (Using spray bottle when urinating to help with burning. ), Other (Some mild period type cramping) - Patient Data Vitals - Most Recent: Last Vital Signs Temp 97.5 F 05/08/18 07:39 Pulse 73 05/08/18 07:39 Resp 16 05/08/18 07:39 BP 111/63 05/08/18 07:39 Pulse Ox 99 05/08/18 07:39 Weight - Most Recent: 240 lb Lab Results - Last 24 hrs: Laboratory Results - last 24 hr 05/08/18 05/08/18 05/08/18 Range/Units 06:00 06:00 06:10 WBC 14.7 H (5.0-10.0) 10^3/uL RBC 3.95 L (4.2-5.4) 10^6/uL Hgb 11.8 L D (12.0-16.0) g/dL Hct 36.4 L (37.0-47.0) % MCV 92.2 (80-100) fL MCH 29.9 (27.0-34.0) pg MCHC 32.4 L (33.0-35.0) g/dL Plt Count 186 (150-450) 10^3/uL Urine Color Red (YELLOW) Urine Appearance Slightly cloudy (CLEAR) Urine pH 6.5 (5.0-9.0) Ur Specific [place] 1.010 (1.005-1.030) Urine Protein 30 H (NEGATIVE) Urine Glucose (UA) Negative (NEGATIVE) Urine Ketones Negative (NEGATIVE) Urine Occult Blood Large H (NEGATIVE) Urine Nitrite Negative (NEGATIVE) Urine Bilirubin Negative (NEGATIVE) Urine Urobilinogen 0.2 (0.2-1.0) mg/dL Ur Leukocyte Esterase Moderate H (NEGATIVE) Urine RBC >100 H /HPF Urine WBC 30-40 H (0-5/HPF) /HPF Ur Epithelial Cells Moderate H /HPF Urine Bacteria Few (0-FEW/HPF) /HPF Urine Mucus Not seen /LPF Urine Opiates Screen Negative (NEGATIVE) Ur Oxycodone Screen Negative (NEGATIVE) Urine Methadone Screen Negative (NEGATIVE) Ur Barbiturates Screen Negative (NEGATIVE) U Tricyclic Antidepress Negative (NEGATIVE) Ur Phencyclidine Scrn Negative (NEGATIVE) Ur Amphetamine Screen Negative (NEGATIVE) U Methamphetamines Scrn Negative (NEGATIVE) Urine MDMA Screen Negative (NEGATIVE) U Benzodiazepines Scrn Negative (NEGATIVE) Urine Cocaine Screen Negative (NEGATIVE) U Marijuana (THC) Screen Negative (NEGATIVE) Med Orders - Current: Current Medications Acetaminophen (Tylenol) 650 mg PO Q4H PRN PRN Reason: Pain (Mild 1-3) and fever Last Admin: 05/07/18 21:31 Dose: 650 mg Benzocaine/Menthol (Dermoplast Pain Relief [place]) 0 gm TOP Q4H PRN PRN Reason: Perineal comfort measures Last Admin: 05/07/18 00:41 Dose: 1 spray Carboprost Tromethamine (Hemabate Ds) 250 mcg IM ASDIRECTED PRN PRN Reason: HEMORRHAGE Docusate Sodium (Colace) 100 mg PO BID PRN PRN Reason: Constipation Last Admin: 05/08/18 09:33 Dose: 100 mg Lactated Ringer's (Ringers, Lactated) 1,000 mls @ 125 mls/hr IV ASDIRECTED ZURI Last Admin: 05/06/18 21:32 Dose: 125 mls/hr Oxytocin/Sodium Chloride (Pitocin In Ns 30 Unit/500 Ml) 30 unit in 500 mls @ 2 mls/hr IV TITRATE ZURI; Protocol Last Titration: 05/06/18 21:55 Dose: 0 mls/hr Tranexamic Acid 1,000 mg/ (Sodium Chloride) 110 mls @ 660 mls/hr IV ONETIME PRN PRN Reason: Bleeding Ibuprofen (Motrin) 800 mg PO Q8H PRN PRN Reason: Mild Pain or Fever Last Admin: 05/08/18 04:47 Dose: 800 mg Lidocaine HCl (Xylocaine-Mpf 1%) 30 ml INJECT ASDIRECTED PRN PRN Reason: Perineal Repair Methylergonovine Maleate (Methergine) 0.2 mg IM ASDIRECTED PRN PRN Reason: Hemorrhage Misoprostol (Cytotec) 800 mcg RECTAL ASDIRECTED PRN PRN Reason: Hemorrhage Ondansetron HCl (Zofran) 4 mg IV Q4H PRN PRN Reason: Nausea/Vomiting Ondansetron HCl (Zofran Odt) 4 mg PO Q6H PRN PRN Reason: Nausea Last Admin: 05/08/18 09:33 Dose: 4 mg Prenat Multivit/[place]/Iron/Folic Ac ( Plus Iron) 1 each PO DAILY ZURI Last Admin: 05/08/18 09:33 Dose: 1 each Simethicone (Simethicone) 80 mg PO Q4H PRN PRN Reason: Gas Sodium Chloride (Saline Flush) 10 ml FLUSH ASDIRECTED PRN PRN Reason: Keep Vein Open Zolpidem Tartrate (Ambien) 5 mg PO BEDTIME PRN PRN Reason: Insomnia Discontinued Medications Epinephrine HCl (Adrenalin) Confirm Administered Dose 1 mg .ROUTE .STK-MED ONE Stop: 05/06/18 15:00 Last Admin: 05/06/18 18:39 Dose: Not Given Fentanyl (Sublimaze) Confirm Administered Dose 100 mcg .ROUTE .STK-MED ONE Stop: 05/06/18 15:00 Last Admin: 05/06/18 18:39 Dose: Not Given Hydroxyzine HCl (Atarax) 50 mg PO ONETIME ONE Stop: 05/06/18 08:19 Last Admin: 05/06/18 08:27 Dose: 50 mg Lactated Ringer's (Ringers, Lactated) 500 mls @ 500 mls/hr IV .BOLUS ONE Stop: 05/06/18 15:59 Last Admin: 05/06/18 12:28 Dose: 500 mls/hr Nalbuphine HCl (Nubain) 20 mg IM ONETIME ONE Stop: 05/06/18 13:48 Last Admin: 05/06/18 20:09 Dose: Not Given Nalbuphine HCl (Nubain) 5 mg IV ONETIME ONE Stop: 05/06/18 13:50 Last Admin: 05/06/18 14:00 Dose: 5 mg Sufentanil Citrate (Sufenta) Confirm Administered Dose 50 mcg .ROUTE .STK-MED ONE Stop: 05/06/18 15:00 Last Admin: 05/06/18 18:39 Dose: Not Given - Exam General: Reports: Alert, Oriented Lungs: Reports: Clear to Auscultation, Normal Respiratory Effort Cardiovascular: Reports: Regular Rate, Regular Rhythm GI/Abdominal Exam: Soft, Non-Tender, Other (Fundus not palpated due to patient size) Extremities: Pedal Edema (mild)
== END 2018-05-08 15:45 | disposition home or self-care (01) | DRG 560 ==
LOC: DL.OBCHECK 05:42 → DL.OB 09:49 → OBSVTOIN 18:41 → DL.OB 18:41
PROVIDERS: ADMIT Family Medicine; ATTEND Family Medicine
PROC: 10D07Z6 Extraction of Products of Conception, Vacuum, Via Natural or Artificial Opening (ICD-10-PCS; principal; 2018-05-06)
PROC: 0HQ9XZZ Repair Perineum Skin, External Approach (ICD-10-PCS; 2018-05-06)
PROC: 10907ZC Drainage of Amniotic Fluid, Therapeutic from Products of Conception, Via Natural or Artificial Opening (ICD-10-PCS; 2018-05-06)
PROC: 3E0R3BZ Introduction of Anesthetic Agent into Spinal Canal, Percutaneous Approach (ICD-10-PCS; 2018-05-06)
DX: O77.0 Labor and delivery complicated by meconium in amniotic fluid (principal); O13.4 Gestational [pregnancy-induced] hypertension without significant proteinuria, complicating childbirth; O70.0 First degree perineal laceration during delivery; O99.344 Other mental disorders complicating childbirth; F32.9 Major depressive disorder, single episode, unspecified; O99.334 Smoking (tobacco) complicating childbirth; O99.324 Drug use complicating childbirth; F12.90 Cannabis use, unspecified, uncomplicated; O99.214 Obesity complicating childbirth; E66.9 Obesity, unspecified; O99.354 Diseases of the nervous system complicating childbirth; G43.909 Migraine, unspecified, not intractable, without status migrainosus; Z3A.39 39 weeks gestation of pregnancy; Z37.0 Single live birth
CPT/HCPCS: 36415; 51701; 59409; 80305-QW; 81001; 82550; 82570; 83615; 84156; 84450; 84460; 84520; 84550; 85027; A9270-GY; J2300; J2590; J7120

== ENCOUNTER 2018-07-15 05:11 | Emergency (ER) | payer BC, MEDICAID ==
[2018-07-15] MEDS ORDERED: Ondansetron 4 MG/2 ML SDV IV ONE (05:31)
[2018-07-15] MEDS ORDERED: Sodium Chloride 0.9% 1,000 ML IV ONE (05:31)
--- NOTE | 2018-07-15 05:35 | EDM.PDOC ---
ED HPI GENERAL MEDICAL PROBLEM - General Chief Complaint: Abdominal Pain Stated Complaint: BAD STOMACH PAIN [id number] Time Seen by Provider: 07/15/18 05:32 Source of Information: Reports: Patient History Limitations: Reports: No Limitations - History of Present Illness INITIAL COMMENTS - FREE TEXT/NARRATIVE: states woke up at 1am abd 6x vomiting and 5x diarrhoea, none now but lots of pain and nausea. 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: , Other (See Below) Other SHEET FINISHER History: breast abscess surgery Musculoskeletal History: Reports: Back Pain, Chronic, Other (See Below) Other Musculoskeletal History: herniated disc Neurological History: Reports: Migraines Psychiatric History: Reports: Depression Endocrine/Metabolic History: Reports: Obesity/BMI 30+ Hematologic History: Reports: None Immunologic History: Reports: None Oncologic (Cancer) History: Reports: None Dermatologic History: Reports: Chronic Cellulitis, Eczema - Infectious Disease History Infectious Disease History: Reports: Chicken Pox - Past Surgical History Head Surgeries/Procedures: Reports: None HEENT Surgical History: Reports: Other (See Below) Female Surgical History: Reports: Other (See Below) Musculoskeletal Surgical History: Reports: Other (See Below) Other Musculoskeletal Surgeries/Procedures:: herniated disc repair Dermatological Surgical History: Reports: Other (See Below) Social & Family History - Family History Family Medical History: Noncontributory - Tobacco Use Smoking Status *Q: Current Every Day Smoker Years of Tobacco use: 16 Packs/Tins Daily: 0.5 - Caffeine Use Caffeine Use: Reports: Coffee, Soda - Recreational Drug Use Recreational Drug Use: Yes Drug Use in Last 12 Months: Yes Recreational Drug Type: Reports: Marijuana/Hashish Recreational Drug Use Frequency: Socially - Sexual History Sexual History: Reports: Sexually Active - Living Situation & Occupation Living situation: Reports: , with Significant Other Occupation: Employed (working at [employer] for 3 years.) ED ROS GENERAL - Review of Systems Review Of Systems: ROS reveals no pertinent complaints other than HPI. ED EXAM, GI/ABD - Physical Exam Exam: See Below Exam Limited By: No Limitations General Appearance: Alert, WD/WN, Mild Distress, Other (discomfort). No: Active Emesis Ears: Hearing Grossly Normal Throat/Mouth: Normal Voice, No Airway Compromise Head: Atraumatic Neck: Non-Tender, Full Range of Motion Respiratory/Chest: No Respiratory Distress Cardiovascular: Regular Rate, Rhythm GI/Abdominal Exam: Tender, Other (BS hyper, tender periumb-RLQ region). No: Distended, Guarding, Rigid, Rebound Neurological: Alert, Oriented, Normal Cognition, Normal Gait, No Motor/Sensory Deficits Psychiatric: Flat Affect Skin Exam: Warm, Dry, Normal Color Lymphatic: No Adenopathy Course - Vital Signs Last Recorded V/S: Last Vital Signs Temp 36.3 C 07/15/18 06:46 Pulse 73 07/15/18 06:46 Resp 16 07/15/18 06:46 BP 133/90 07/15/18 06:46 Pulse Ox 97 07/15/18 06:46 - Orders/Labs/Meds Orders: Active Orders 24 hr Category Date Time Status Abdomen Pelvis w Cont [CT] Urgent Exams 07/15/18 06:18 Ordered CULTURE URINE [RM] Stat Lab 07/15/18 05:02 Received Labs: Laboratory Tests 07/15/18 07/15/18 07/15/18 Range/Units 05:02 05:02 05:02 WBC (5.0-10.0) 10^3/uL RBC (4.2-5.4) 10^6/uL Hgb (12.0-16.0) g/dL Hct (37.0-47.0) % MCV (80-100) fL MCH (27.0-34.0) pg MCHC (33.0-35.0) g/dL Plt Count (150-450) 10^3/uL Neut % (Auto) (42.2-75.2) % Lymph % (Auto) (20.5-50.1) % [place] % (Auto) (2-8) % Eos % (Auto) (1.0-3.0) % Baso % (Auto) (0.0-1.0) % Sodium (135-145) mmol/L Potassium (3.6-5.0) mmol/L Chloride (101-111) mmol/L Carbon Dioxide (21.0-31.0) mmol/L Anion Gap BUN (7-18) mg/dL Creatinine (0.6-1.3) mg/dL Est Cr Clr Drug Dosing mL/min Estimated GFR (MDRD) BUN/Creatinine Ratio Glucose (74-105) mg/dL Lactic Acid (0.5-2.2) mmol/L Calcium (8.4-10.2) mg/dl Total Bilirubin (0.2-1.0) mg/dL AST (10-42) IU/L ALT (10-60) IU/L Alkaline Phosphatase (42-121) IU/L Total Protein (6.7-8.2) g/dl Albumin (3.2-5.5) g/dl Globulin Albumin/Globulin Ratio Urine Color Yellow (YELLOW) Urine Appearance Slightly cloudy (CLEAR) Urine pH 6.0 (5.0-9.0) Ur Specific [place] 1.020 (1.005-1.030) Urine Protein Negative (NEGATIVE) Urine Glucose (UA) Negative (NEGATIVE) Urine Ketones Negative (NEGATIVE) Urine Occult Blood Negative (NEGATIVE) Urine Nitrite Negative (NEGATIVE) Urine Bilirubin Negative (NEGATIVE) Urine Urobilinogen 0.2 (0.2-1.0) mg/dL Ur Leukocyte Esterase Trace H (NEGATIVE) Urine RBC 0-5 /HPF Urine WBC 10-20 H (0-5/HPF) /HPF Ur Epithelial Cells Many H /HPF Urine Bacteria Many H (0-FEW/HPF) /HPF Urine Mucus Moderate H /LPF Urine Other See note Urine HCG, Qual Negative Urine Opiates Screen Negative (NEGATIVE) Ur Oxycodone Screen Negative (NEGATIVE) Urine Methadone Screen Negative (NEGATIVE) Ur Barbiturates Screen Negative (NEGATIVE) U Tricyclic Antidepress Negative (NEGATIVE) Ur Phencyclidine Scrn Negative (NEGATIVE) Ur Amphetamine Screen Negative (NEGATIVE) U Methamphetamines Scrn Negative (NEGATIVE) Urine MDMA Screen Negative (NEGATIVE) U Benzodiazepines Scrn Negative (NEGATIVE) Urine Cocaine Screen Negative (NEGATIVE) U Marijuana (THC) Screen Positive H (NEGATIVE) 07/15/18 07/15/18 07/15/18 Range/Units 05:32 05:32 05:35 WBC 13.4 H (5.0-10.0) 10^3/uL RBC 4.71 (4.2-5.4) 10^6/uL Hgb 14.3 D (12.0-16.0) g/dL Hct 43.6 (37.0-47.0) % MCV 92.6 (80-100) fL MCH 30.4 (27.0-34.0) pg MCHC 32.8 L (33.0-35.0) g/dL Plt Count 280 D (150-450) 10^3/uL Neut % (Auto) 78.8 H (42.2-75.2) % Lymph % (Auto) 12.2 L (20.5-50.1) % [place] % (Auto) 6.9 (2-8) % Eos % (Auto) 2.0 (1.0-3.0) % Baso % (Auto) 0.1 (0.0-1.0) % Sodium 136 (135-145) mmol/L Potassium 4.3 (3.6-5.0) mmol/L Chloride 105 (101-111) mmol/L Carbon Dioxide 22.0 (21.0-31.0) mmol/L Anion Gap 13.3 BUN 9 (7-18) mg/dL Creatinine 0.7 (0.6-1.3) mg/dL Est Cr Clr Drug Dosing 108.01 mL/min Estimated GFR (MDRD) > 60 BUN/Creatinine Ratio 12.85 Glucose 109 H (74-105) mg/dL Lactic Acid 1.4 (0.5-2.2) mmol/L Calcium 8.9 (8.4-10.2) mg/dl Total Bilirubin 0.8 (0.2-1.0) mg/dL AST 27 (10-42) IU/L ALT 29 (10-60) IU/L Alkaline Phosphatase 65 (42-121) IU/L Total Protein 7.1 (6.7-8.2) g/dl Albumin 3.6 (3.2-5.5) g/dl Globulin 3.5 Albumin/Globulin Ratio 1.03 Urine Color (YELLOW) Urine Appearance (CLEAR) Urine pH (5.0-9.0) Ur Specific [place] (1.005-1.030) Urine Protein (NEGATIVE) Urine Glucose (UA) (NEGATIVE) Urine Ketones (NEGATIVE) Urine Occult Blood (NEGATIVE) Urine Nitrite (NEGATIVE) Urine Bilirubin (NEGATIVE) Urine Urobilinogen (0.2-1.0) mg/dL Ur Leukocyte Esterase (NEGATIVE) Urine RBC /HPF Urine WBC (0-5/HPF) /HPF Ur Epithelial Cells /HPF Urine Bacteria (0-FEW/HPF) /HPF Urine Mucus /LPF Urine Other Urine HCG, Qual Urine Opiates Screen (NEGATIVE) Ur Oxycodone Screen (NEGATIVE) Urine Methadone Screen (NEGATIVE) Ur Barbiturates Screen (NEGATIVE) U Tricyclic Antidepress (NEGATIVE) Ur Phencyclidine Scrn (NEGATIVE) Ur Amphetamine Screen (NEGATIVE) U Methamphetamines Scrn (NEGATIVE) Urine MDMA Screen (NEGATIVE) U Benzodiazepines Scrn (NEGATIVE) Urine Cocaine Screen (NEGATIVE) U Marijuana (THC) Screen (NEGATIVE) Meds: Medications Discontinued Medications Generic Name Dose Route Start Last Admin Trade Name Freq PRN Reason Stop Dose Admin Sodium Chloride 1,000 mls @ 999 mls/hr 07/15/18 05:31 07/15/18 05:41 Normal Saline IV 07/15/18 06:31 999 mls/hr .BOLUS ONE Administration Iopamidol 100 ml 07/15/18 06:18 07/15/18 06:37 Isovue-300 (61%) IVPUSH 07/15/18 06:19 100 ml ONETIME ONE Administration Morphine Sulfate 2 mg 07/15/18 06:19 07/15/18 06:23 Morphine IVPUSH 07/15/18 06:20 2 mg ONETIME ONE Administration Ondansetron HCl 4 mg 07/15/18 05:31 07/15/18 05:42 Zofran IV 07/15/18 05:32 4 mg ONETIME ONE Administration - Re-Assessments/Exams Free Text/Narrative Re-Assessment/Exam: 07/15/18 06:30 re-exam; still c/o pain 07/15/18 06:57 results discussed with pt who is feeling better presently Departure - Departure Time of Disposition: 06:58 Disposition: Home, Self-Care 01 Condition: Good Clinical Impression: Gastroenteritis Vomiting Qualifiers: Vomiting type: unspecified Vomiting Intractability: non-intractable Nausea presence: with nausea Qualified Code(s): R11.2 - Nausea with vomiting, unspecified Diarrhea Qualifiers: Diarrhea type: unspecified type Qualified Code(s): R19.7 - Diarrhea, unspecified - Discharge Information Instructions: Viral Gastroenteritis, Adult, [id number] Forms: ED Department Discharge Additional Instructions: 1) avoid solid foods next 48 hours 2) have liquids 3) follow up at clinic rx given; bentyl 10mg bid prn x 6 zofran 4mg ODT bid prn x 6 imodium qid prn - My Orders Last 24 Hours: My Active Orders 07/15/18 05:02 CULTURE URINE [RM] Stat 07/15/18 06:18 Abdomen Pelvis w Cont [CT] Urgent - Assessment/Plan Last 24 Hours: My Active Orders 07/15/18 05:02 CULTURE URINE [RM] Stat 07/15/18 06:18 Abdomen Pelvis w Cont [CT] Urgent
[2018-07-15 05:59] LABS: ANION GAP 13.3; CHLORIDE,CL 105 mmol/L (101-111); SODIUM,NA 136 mmol/L (135-145)
[2018-07-15] MEDS ORDERED: Iopamidol 612 MG/ML 100 ML Bottle IVPUSH ONE (06:18)
[2018-07-15] MEDS ORDERED: Morphine 2 MG/ML Syringe IVPUSH ONE (06:19)
[2018-07-15 06:47] VITALS: BP 133/90; PULSE 73
== END 2018-07-15 07:09 | disposition home or self-care (01) ==
LOC: DL.ED 05:11
DX: K52.9 Noninfective gastroenteritis and colitis, unspecified (principal); F17.210 Nicotine dependence, cigarettes, uncomplicated; F32.9 Major depressive disorder, single episode, unspecified; Z88.6 Allergy status to analgesic agent
CPT/HCPCS: 36415; 74177; 80053; 80305; 81001; 81025; 83605; 85025; 87086; 96374; 96375; 99284; J2270; J2405; J7030; Q9967

== ENCOUNTER 2018-11-19 18:31 | Emergency (ER) | payer MEDICAID ==
[2018-11-19] MEDS ORDERED: predniSONE 20 MG Tab PO ONE (18:32)
[2018-11-19] MEDS ORDERED: Cyclobenzaprine 10 MG Tab PO ONE (18:32)
[2018-11-19 19:03] VITALS: BP 134/87
[2018-11-19] MEDS: Ketorolac 30 MG/ML SDV IM ONE (19:55)
--- NOTE | 2018-11-19 20:48 | EDM.PDOC ---
ED HPI GENERAL MEDICAL PROBLEM - General Chief Complaint: Back Pain or Injury Stated Complaint: BACK PAIN Time Seen by Provider: 11/19/18 19:15 Source of Information: Reports: Patient History Limitations: Reports: No Limitations - History of Present Illness INITIAL COMMENTS - FREE TEXT/NARRATIVE: ED with c/o severe back pain. Has chronic back pain MRI scheduled Sunday. Has been seeing chiro. Hx degenerative disc disease. Pain low back bilateral buttocks down to knees. No weakness, spasm, sharp, tried muscle relaxer at home earlier and didn't help. Notes unable to left 6 month child without severe pain. No problems with bowel or bladder. 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, Other Medication(s) Lower Back Pain Score (Numeric/FACES): 8 - Related Data Allergies Allergy/AdvReac Type Severity Reaction Status Date / Time hydrocodone AdvReac Intermediate Vomiting Verified 11/19/18 18:50 Home Meds: Home Meds Acetaminophen [Tylenol Arthritis] 650 mg PO Q4H PRN 11/19/18 [History] FLUoxetine HCl [Fluoxetine HCl] 40 mg PO DAILY 11/19/18 [History] Norethindrone 1 tab PO DAILY 11/19/18 [History] Past Medical History HEENT History: Reports: Impaired Vision Other HEENT History: wears glasses Cardiovascular History: Reports: None Respiratory History: Reports: Asthma Other Gastrointestinal History: food poisoning Genitourinary History: Reports: UTI, Recurrent 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: , 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 (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 History: breast abscess surgery Musculoskeletal History: Reports: Back Pain, Chronic, Other (See Below) Other Musculoskeletal History: herniated disc Neurological History: Reports: Migraines Psychiatric History: Reports: Depression Endocrine/Metabolic History: Reports: Obesity/BMI 30+ Hematologic History: Reports: None Immunologic History: Reports: None Oncologic (Cancer) History: Reports: None Dermatologic History: Reports: Chronic Cellulitis, Eczema - Infectious Disease History Infectious Disease History: Reports: Chicken Pox - Past Surgical History Head Surgeries/Procedures: Reports: None HEENT Surgical History: Reports: Other (See Below) Female Surgical History: Reports: Other (See Below) Musculoskeletal Surgical History: Reports: Other (See Below) Other Musculoskeletal Surgeries/Procedures:: herniated disc repair, L) foot surgery Dermatological Surgical History: Reports: Other (See Below) Social & Family History - Family History Family Medical History: Noncontributory - Tobacco Use Smoking Status *Q: Current Every Day Smoker Years of Tobacco use: 16 Packs/Tins Daily: 0.5 - Caffeine Use Caffeine Use: Reports: Coffee, Soda - Recreational Drug Use Recreational Drug Use: Yes Recreational Drug Type: Reports: Marijuana/Hashish - Sexual History Sexual History: Reports: Sexually Active - Living Situation & Occupation Living situation: Reports: , with Significant Other Occupation: Employed (working at [employer] for 3 years.) ED ROS GENERAL - Review of Systems Review Of Systems: See Below Constitutional: Reports: No Symptoms HEENT: Reports: No Symptoms Respiratory: Reports: No Symptoms Cardiovascular: Reports: No Symptoms GI/Abdominal: Reports: No Symptoms : Reports: No Symptoms Musculoskeletal: Reports: Back Pain Skin: Reports: No Symptoms Neurological: Denies: Tingling, Difficulty Walking, Weakness ED EXAM, UPPER BACK/NECK PAIN - Physical Exam Exam: See Below Exam Limited By: No Limitations General Appearance: Alert, Moderate Distress, Obese Eye Exam: Bilateral Eye: EOMI Ears Exam: Normal External Exam Nose Exam: Normal Inspection Throat/Mouth Exam: Normal Inspection Head Exam: Atraumatic, Normocephalic Neck Exam: Full Range of Motion Nexus Criteria: No: Posterior, Midline Cervical Tenderness, Evidence of Intoxication Cardiovascular/Respiratory: Regular Rate, Rhythm GI/Abdominal: Normal Bowel Sounds, Soft, Non-Tender Back Exam: Decreased Range of Motion, Muscle Spasm, Paraspinal Tenderness ( bilateral), Vertebral Tenderness (mild low lumbar sacral, SI pain with palpation ), Other (+ leg raise 30 degrees bilateral). No: CVA Tenderness (L), CVA Tenderness (R) Extremities: Normal Inspection Neurologic: No Motor/Sensory Deficits, Alert, Normal Mood/Affect, Oriented x 3, Abnormal Gait (stooped), Motor Weakness Psychiatric: Tearful Skin Exam: Normal Color Course - Vital Signs Last Recorded V/S: Last Vital Signs Temp 97.7 F 11/19/18 18:53 Pulse 74 11/19/18 18:53 Resp 16 11/19/18 18:53 BP 134/87 11/19/18 18:53 Pulse Ox 99 11/19/18 18:53 - Orders/Labs/Meds Meds: Medications Discontinued Medications Generic Name Dose Route Start Last Admin Trade Name Freq PRN Reason Stop Dose Admin Cyclobenzaprine HCl Confirm 11/19/18 20:43 11/19/18 20:51 Flexeril Administered 11/19/18 20:44 Not Given Dose 20 mg .ROUTE .STK-MED ONE Cyclobenzaprine HCl 20 mg 11/19/18 18:32 Flexeril PO 11/19/18 18:33 .STK-MED ONE Ketorolac Tromethamine 30 mg 11/19/18 19:44 11/19/18 19:55 Toradol IM 11/19/18 19:45 30 mg ONETIME ONE Administration Orphenadrine Citrate 60 mg 11/19/18 19:45 11/19/18 19:55 Norflex IM 11/19/18 19:46 60 mg ONETIME ONE Administration Prednisone Confirm 11/19/18 20:43 11/19/18 20:52 Prednisone Administered 11/19/18 20:44 Not Given Dose 20 mg .ROUTE .STK-MED ONE Prednisone 20 mg 11/19/18 18:32 Prednisone PO 11/19/18 18:33 .STK-MED ONE - Re-Assessments/Exams Free Text/Narrative Re-Assessment/Exam: 11/22/18 05:29 pain improved with norflex and toradol Departure - Departure Time of Disposition: 20:44 Disposition: Home, Self-Care 01 Condition: Good Clinical Impression: Back pain Qualifiers: Back pain location: low back pain Chronicity: acute Back pain laterality: bilateral Sciatica presence: with sciatica Sciatica laterality: bilateral sciatica Qualified Code(s): M54.42 - Lumbago with sciatica, left side - Discharge Information *PRESCRIPTION DRUG MONITORING PROGRAM REVIEWED*: Yes *COPY OF PRESCRIPTION DRUG MONITORING REPORT IN PATIENT DENA: No Instructions: Acute Back Pain, Adult Referrals: PCP,None [Ordering Only Provider] - Forms: ED Department Discharge Additional Instructions: Rest no lifting greater than 10 # x 24 hours then 15# x 24 hours , advance as tolerated ice to low back no chiro this week follow up in am with PCP prednisone 20mg x 3d then 10 x 3d then 5 x 3d MRI as scheduled flexeril 10mg every 8 hours as needed for muscle spasm tylenol 650mg every 4-6 hours as needed for discomfort
[2018-11-19] MEDS: Cyclobenzaprine 10 MG Tab ONE (20:51)
[2018-11-19] MEDS: predniSONE 20 MG Tab ONE (20:52)
== END 2018-11-19 20:50 | disposition home or self-care (01) ==
LOC: DL.ED 18:31
DX: M54.42 Lumbago with sciatica, left side (principal); M54.41 Lumbago with sciatica, right side; E66.9 Obesity, unspecified; F17.210 Nicotine dependence, cigarettes, uncomplicated; Z88.5 Allergy status to narcotic agent
CPT/HCPCS: 96372; 99282; A9270-GY; J1885; J2360

== ENCOUNTER 2019-04-12 09:55 | Emergency (ER) | payer MEDICAID ==
[2019-04-12] MEDS ORDERED: metroNIDAZOLE 250 MG Tab PO ONE ×2 (09:56→10:52)
[2019-04-12] MEDS ORDERED: Cyclobenzaprine 10 MG Tab PO ONE (09:56)
[2019-04-12] MEDS ORDERED: Dexamethasone 2 MG Tab PO ONE (09:56)
[2019-04-12] MEDS ORDERED: Nitrofurantoin Monohydrate/Macrocrystalline 100 MG Cap PO ONE ×2 (09:56→10:51)
--- NOTE | 2019-04-12 10:19 | EDM.PDOC ---
ED HPI GENERAL MEDICAL PROBLEM - General Stated Complaint: BACK PAIN Time Seen by Provider: 04/12/19 10:31 Source of Information: Reports: Patient, RN, RN Notes Reviewed History Limitations: Reports: No Limitations - History of Present Illness INITIAL COMMENTS - FREE TEXT/NARRATIVE: patient to ER with complaint of back pain that began yesterday and has progressively gotten worse. Patient rates pain 10/10. Admits to history of herniated disks, chronic back pain. Patient states no new injury to the back. Patient denies any urinary symptoms, frequency, urgency, burning with urination. Patient admits to shooting pains down both legs. Denies numbness or tingling, saddle anesthesia, incontinence of bowel or bladder. Onset: Gradual Right Back Pain Score (Numeric/FACES): 8 - Related Data Allergies Allergy/AdvReac Type Severity Reaction Status Date / Time hydrocodone AdvReac Intermediate Vomiting Verified 04/12/19 10:24 Home Meds: Home Meds Acetaminophen [Tylenol Arthritis] 650 mg PO Q4H PRN 11/19/18 [History] FLUoxetine HCl [Fluoxetine HCl] 40 mg PO DAILY 11/19/18 [History] Norethindrone 1 tab PO DAILY 11/19/18 [History] Past Medical History HEENT History: Reports: Impaired Vision Other HEENT History: wears glasses Cardiovascular History: Reports: None Respiratory History: Reports: Asthma Other Gastrointestinal History: food poisoning Genitourinary History: Reports: UTI, Recurrent 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: , 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 (See Below) 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: breast abscess surgery Musculoskeletal History: Reports: Back Pain, Chronic, Other (See Below) Other Musculoskeletal History: herniated disc Neurological History: Reports: Migraines Psychiatric History: Reports: Depression Endocrine/Metabolic History: Reports: Obesity/BMI 30+ Hematologic History: Reports: None Immunologic History: Reports: None Oncologic (Cancer) History: Reports: None Dermatologic History: Reports: Chronic Cellulitis, Eczema - Infectious Disease History Infectious Disease History: Reports: Chicken Pox - Past Surgical History Head Surgeries/Procedures: Reports: None HEENT Surgical History: Reports: Other (See Below) Musculoskeletal Surgical History: Reports: Other (See Below) Other Musculoskeletal Surgeries/Procedures:: herniated disc repair, L) foot surgery Dermatological Surgical History: Reports: Other (See Below) Social & Family History - Family History Family Medical History: Noncontributory - Caffeine Use Caffeine Use: Reports: Coffee, Soda - Sexual History Sexual History: Reports: Sexually Active - Living Situation & Occupation Living situation: Reports: , with Significant Other Occupation: Employed (working at [employer] for 3 years.) ED ROS GENERAL - Review of Systems Review Of Systems: Comprehensive ROS is negative, except as noted in HPI. ED EXAM,LOWER BACK PAIN/INJURY - Physical Exam Exam: See Below Exam Limited By: No Limitations General Appearance: Alert, WD/WN, Moderate Distress Eye Exam: Bilateral Eye: EOMI, Normal Inspection Ears: Normal External Exam, Hearing Grossly Normal Nose: Normal Inspection Throat/Mouth: Normal Inspection, Normal Voice, No Airway Compromise Head: Atraumatic, Normocephalic Neck: Normal Inspection, Supple, Non-Tender, Full Range of Motion Respiratory/Chest: No Respiratory Distress, Lungs Clear, Normal Breath Sounds, No Accessory Muscle Use, Chest Non-Tender Cardiovascular: Normal Peripheral Pulses, Regular Rate, Rhythm, No Edema, No Gallop, No JVD, No Murmur, No Rub GI/Abdominal: Normal Bowel Sounds, Soft, Non-Tender, No Organomegaly, No Distention, No Abnormal Bruit, No Mass (Female) Exam: Deferred Rectal (Female) Exam: Deferred Back Exam: Normal Inspection, Decreased Range of Motion, Muscle Spasm, Vertebral Tenderness, Other (pain midline lower back, into the right shooting pains down both legs) Extremities: Normal Inspection, Limited Range of Motion, Other (shooting pains down both legs) Neurological: Alert, Normal Mood/Affect, Normal Dorsiflexion, CN II-XII Intact, Normal Plantar Flexion, Normal Gait, Normal Reflexes, No Motor/Sensory Deficits , Oriented x 3 Psychiatric: Normal Affect, Normal Mood Skin Exam: Warm, Dry, Intact, Normal Color, No Rash Lymphatic: No Adenopathy Course - Vital Signs Last Recorded V/S: Last Vital Signs Temp 96.1 F 04/12/19 10:10 Pulse 96 04/12/19 10:10 Resp 16 04/12/19 10:10 BP 122/82 04/12/19 10:10 Pulse Ox 93 L 04/12/19 10:10 - Orders/Labs/Meds Orders: Active Orders 24 hr Category Date Time Status CULTURE URINE [RM] Stat Lab 04/12/19 10:07 Received Labs: Laboratory Tests 04/12/19 04/12/19 Range/Units 10:07 10:07 Urine Color Yellow (YELLOW) Urine Appearance Cloudy (CLEAR) Urine pH 6.5 (5.0-9.0) Ur Specific [place] >= 1.030 (1.005-1.030) Urine Protein Negative (NEGATIVE) Urine Glucose (UA) Negative (NEGATIVE) Urine Ketones Negative (NEGATIVE) Urine Occult Blood Negative (NEGATIVE) Urine Nitrite Negative (NEGATIVE) Urine Bilirubin Negative (NEGATIVE) Urine Urobilinogen 0.2 (0.2-1.0) mg/dL Ur Leukocyte Esterase Trace H (NEGATIVE) Urine RBC Not seen /HPF Urine WBC 10-20 H (0-5/HPF) /HPF Ur Epithelial Cells Many H (NOT SEEN) /HPF Urine Bacteria Many H (0-FEW/HPF) /HPF Urine HCG, Qual Negative Meds: Medications Discontinued Medications Generic Name Dose Route Start Last Admin Trade Name Freq PRN Reason Stop Dose Admin Cyclobenzaprine HCl Confirm 04/12/19 11:24 04/12/19 11:34 Flexeril Administered 04/12/19 11:25 Not Given Dose 30 mg .ROUTE .STK-MED ONE Dexamethasone 12 mg 04/12/19 10:52 04/12/19 11:01 Dexamethasone IM 04/12/19 10:53 12 mg ONETIME ONE Administration Dexamethasone Confirm 04/12/19 11:24 04/12/19 11:34 Dexamethasone Administered 04/12/19 11:25 Not Given Dose 4 mg .ROUTE .STK-MED ONE Ketorolac Tromethamine 30 mg 04/12/19 10:53 04/12/19 11:01 Toradol IM 04/12/19 10:54 30 mg ONETIME ONE Administration Metronidazole 500 mg 04/12/19 10:52 04/12/19 11:01 Metronidazole PO 04/12/19 10:53 500 mg ONETIME ONE Administration Metronidazole Confirm 04/12/19 11:24 04/12/19 11:34 Metronidazole Administered 04/12/19 11:25 Not Given Dose 1,000 mg .ROUTE .STK-MED ONE Nitrofurantoin Macrocrystals 100 mg 04/12/19 10:51 04/12/19 11:01 Macrobid PO 04/12/19 10:52 100 mg ONETIME ONE Administration Nitrofurantoin Macrocrystals Confirm 04/12/19 11:24 04/12/19 11:34 Macrobid Administered 04/12/19 11:25 Not Given Dose 200 mg .ROUTE .STK-MED ONE Orphenadrine Citrate 60 mg 04/12/19 10:52 04/12/19 11:00 Norflex IM 04/12/19 10:53 60 mg ONETIME ONE Administration Departure - Departure Time of Disposition: 11:13 Disposition: Home, Self-Care 01 Condition: Fair Clinical Impression: Lumbar radicular pain, Bacterial vaginosis UTI (urinary tract infection) Qualifiers: Urinary tract infection type: acute cystitis Hematuria presence: with hematuria Qualified Code(s): N30.01 - Acute cystitis with hematuria - Discharge Information *PRESCRIPTION DRUG MONITORING PROGRAM REVIEWED*: No *COPY OF PRESCRIPTION DRUG MONITORING REPORT IN PATIENT DENA: No Instructions: Antibiotic Medicine, Adult, [id number], Radicular Pain, Back Injury Prevention, [id number], Muscle Strain, [id number], Bacterial Vaginosis, [id number], Back Exercises, [id number], Chronic Back Pain, Easy- to-Read Forms: ED Department Discharge Additional Instructions: Rx: Flexeril 10 mg 3 times daily as needed for muscle spasm Dexamethasone 4 mg orally once daily beginning April 13July use ibuprofen as directed for pain Macrobid 100 mg orally twice daily 5 days Metronidazole 500 mg orally twice daily 7 days Follow-up with your primary care provider May use heat and/or ice as directed for pain Sepsis Event Note - Focused Exam Vital Signs: Vital Signs Temp Pulse Resp BP Pulse Ox 04/12/19 10:10 96.1 F 96 16 122/82 93 L Date Exam was Performed: 04/12/19 Time Exam was Performed: 11:51 - My Orders Last 24 Hours: My Active Orders 04/12/19 10:07 CULTURE URINE [RM] Stat - Assessment/Plan Last 24 Hours: My Active Orders 04/12/19 10:07 CULTURE URINE [RM] Stat
[2019-04-12 10:32] VITALS: BP 122/82; PULSE 96
[2019-04-12] MEDS ORDERED: Dexamethasone 4 MG/ML SDV IM ONE (10:52)
[2019-04-12] MEDS ORDERED: Ketorolac 30 MG/ML SDV IM ONE (10:53)
[2019-04-12] MEDS ORDERED: Dexamethasone 2 MG Tab ONE (11:24)
[2019-04-12] MEDS ORDERED: metroNIDAZOLE 250 MG Tab ONE (11:24)
[2019-04-12] MEDS ORDERED: Cyclobenzaprine 10 MG Tab ONE (11:24)
[2019-04-12] MEDS ORDERED: Nitrofurantoin Monohydrate/Macrocrystalline 100 MG Cap ONE (11:24)
== END 2019-04-12 11:35 | disposition home or self-care (01) ==
LOC: DL.ED 09:55
DX: N30.01 Acute cystitis with hematuria (principal); N76.0 Acute vaginitis; B96.89 Other specified bacterial agents as the cause of diseases classified elsewhere; J45.909 Unspecified asthma, uncomplicated; E66.9 Obesity, unspecified; Z68.41 Body mass index [BMI] 40.0-44.9, adult; Z88.6 Allergy status to analgesic agent; Z79.899 Other long term (current) drug therapy
CPT/HCPCS: 81001; 81025; 87086; 96372; 99283; A9270; J1100; J1885; J2360; J8540

== ENCOUNTER 2019-08-27 20:14 | Emergency (ER) | payer MEDICAID ==
[2019-08-27] MEDS ORDERED: Acetaminophen/HYDROcodone 325-5 MG Tab PO ONE ×2 (20:15)
[2019-08-27 20:30] VITALS: BP 146/84; PULSE 91
--- NOTE | 2019-08-27 20:57 | EDM.PDOC ---
ED HPI GENERAL MEDICAL PROBLEM - General Chief Complaint: ENT Problem Stated Complaint: bad mouth pain Time Seen by Provider: 08/27/19 20:35 Source of Information: Reports: Patient, RN, RN Notes Reviewed History Limitations: Reports: No Limitations - History of Present Illness INITIAL COMMENTS - FREE TEXT/NARRATIVE: Presents to ER with complaint of right-sided facial pain and tenderness to the gums of the upper and lower jaw. Patient states she has been unable to eat much or drink much, unable to sleep. Patient is crying in pain. Patient states she has been in touch with her dentist who is currently out of town and will be back the end of this week or beginning of next week. Eyes fever chills , admits to nausea from time to time. States that is very difficult to determine which tooth actually hurts as the whole right side upper and lower is painful. Onset: Gradual Right Oral/Mouth Pain Score (Numeric/FACES): 10 - Related Data Allergies Allergy/AdvReac Type Severity Reaction Status Date / Time hydrocodone AdvReac Intermediate Vomiting Verified 08/27/19 20:33 Home Meds: Home Meds Acetaminophen [Tylenol Arthritis] 650 mg PO Q4H PRN 11/19/18 [History] FLUoxetine HCl [Fluoxetine HCl] 40 mg PO DAILY 11/19/18 [History] Norethindrone 1 tab PO DAILY 11/19/18 [History] Past Medical History HEENT History: Reports: Impaired Vision Other HEENT History: wears glasses Cardiovascular History: Reports: None Respiratory History: Reports: Asthma Other Gastrointestinal History: food poisoning Genitourinary History: Reports: UTI, Recurrent 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: , Other (See Below) Other SHEET [employer] FOREMAN History: breast abscess surgery Musculoskeletal History: Reports: Back Pain, Chronic, Other (See Below) Other Musculoskeletal History: herniated disc Neurological History: Reports: Migraines Psychiatric History: Reports: Depression Endocrine/Metabolic History: Reports: Obesity/BMI 30+ Hematologic History: Reports: None Immunologic History: Reports: None Oncologic (Cancer) History: Reports: None Dermatologic History: Reports: Chronic Cellulitis, Eczema - Infectious Disease History Infectious Disease History: Reports: Chicken Pox - Past Surgical History Head Surgeries/Procedures: Reports: None HEENT Surgical History: Reports: Other (See Below) Musculoskeletal Surgical History: Reports: Other (See Below) Other Musculoskeletal Surgeries/Procedures:: herniated disc repair, L) foot surgery Dermatological Surgical History: Reports: Other (See Below) Social & Family History - Family History Family Medical History: Noncontributory - Tobacco Use Smoking Status *Q: Current Every Day Smoker Years of Tobacco use: 16 Packs/Tins Daily: 1 - Caffeine Use Caffeine Use: Reports: Coffee, Soda - Alcohol Use Date of Last Drink: 08/27/19 - Recreational Drug Use Recreational Drug Use: Yes Drug Use in Last 12 Months: Yes Recreational Drug Type: Reports: Marijuana/Hashish Recreational Drug Use Frequency: Socially - Sexual History Sexual History: Reports: Sexually Active - Living Situation & Occupation Living situation: Reports: , with Significant Other Occupation: Employed (working at [employer] for 3 years.) ED ROS GENERAL - Review of Systems Review Of Systems: Comprehensive ROS is negative, except as noted in HPI. ED EXAM, GENERAL - Physical Exam Exam: See Below Exam Limited By: No Limitations General Appearance: Alert, WD/WN, Moderate Distress, Other (crying with pain) Eye Exam: Bilateral Eye: Conjunctival Injection, EOMI, Normal Inspection Ears: Normal External Exam, Hearing Grossly Normal Nose: Normal Inspection Throat/Mouth: Normal Lips, Normal Teeth, Normal Voice, No Airway Compromise, Other (Mild inflammation to the right upper gums, swelling of the right cheek) Head: Atraumatic, Normocephalic Neck: Normal Inspection, Supple, Non-Tender, Full Range of Motion, Lymphadenopathy (R) (Anterior Cervical +2) Respiratory/Chest: No Respiratory Distress, Lungs Clear, Normal Breath Sounds, No Accessory Muscle Use, Chest Non-Tender Cardiovascular: Normal Peripheral Pulses, Regular Rate, Rhythm, No Edema, No Gallop, No JVD, No Murmur, No Rub GI/Abdominal: Normal Bowel Sounds, Soft, Non-Tender (Female) Exam: Deferred Rectal (Female) Exam: Deferred Back Exam: Normal Inspection, Full Range of Motion, NT Extremities: Normal Inspection, Normal Range of Motion, Non-Tender, Normal Capillary Refill, No Pedal Edema Neurological: Alert, Oriented, CN II-XII Intact, Normal Cognition, Normal Gait, Normal Reflexes, No Motor/Sensory Deficits Psychiatric: Anxious, Tearful Skin Exam: Warm, Dry, Intact, Normal Color, No Rash Lymphatic: Adenopathy (Right Anterior Cervical +2) Course - Vital Signs Last Recorded V/S: Last Vital Signs Temp 96.8 F L 08/27/19 20:22 Pulse 91 08/27/19 20:22 Resp 19 08/27/19 20:22 BP 146/84 H 08/27/19 20:22 Pulse Ox 97 08/27/19 20:22 - Orders/Labs/Meds Meds: Medications Discontinued Medications Generic Name Dose Route Start Last Admin Trade Name Candice PRN Reason Stop Dose Admin Hydrocodone Bitart/Acetaminophen 1 tab 08/27/19 20:55 08/27/19 21:04 [place] 325-10 Mg PO 08/27/19 20:56 1 tab ONETIME ONE Administration Hydrocodone Bitart/Acetaminophen Confirm 08/27/19 21:02 08/27/19 21:09 [place] 325-5 Mg Administered 08/27/19 21:03 Not Given Dose 2 tab .ROUTE .STK-MED ONE Amoxicillin 500 mg 08/27/19 20:53 08/27/19 21:04 Amoxil PO 08/27/19 20:54 500 mg ONETIME ONE Administration Lidocaine HCl 15 ml 08/27/19 21:02 08/27/19 21:09 Xylocaine 2% Viscous PO 08/27/19 21:03 15 ml ONETIME ONE Administration Departure - Departure Time of Disposition: 21:01 Disposition: Home, Self-Care 01 Condition: Fair Clinical Impression: Dental abscess - Discharge Information *PRESCRIPTION DRUG MONITORING PROGRAM REVIEWED*: No *COPY OF PRESCRIPTION DRUG MONITORING REPORT IN PATIENT DENA: No Instructions: Dental Abscess, [id number] Referrals: PCP,Unobtain [Ordering Only Provider] - Forms: ED Department Discharge Additional Instructions: RX: Amoxicillin, [place] Continue to use Ibuprofen as directed for pain May use heat to the area as tolerated Follow up with your dentist Sepsis Event Note - Evaluation Sepsis Screening Result: No Definite Risk - Focused Exam Vital Signs: Vital Signs Temp Pulse Resp BP Pulse Ox 08/27/19 20:22 96.8 F L 91 19 146/84 H 97 Date Exam was Performed: 08/28/19 Time Exam was Performed: 02:53
[2019-08-27] MEDS: Acetaminophen/HYDROcodone 325-10 MG Tab PO ONE (21:04)
[2019-08-27] MEDS: Amoxicillin 500 MG Cap PO ONE (21:04)
[2019-08-27] MEDS: Acetaminophen/HYDROcodone 325-5 MG Tab ONE (21:09)
[2019-08-27] MEDS: Lidocaine 2% Viscous Solution 15 ML Cup PO ONE (21:09)
== END 2019-08-27 21:10 | disposition home or self-care (01) ==
LOC: DL.ED 20:14
DX: K04.7 Periapical abscess without sinus (principal); J45.909 Unspecified asthma, uncomplicated; E66.9 Obesity, unspecified; F32.9 Major depressive disorder, single episode, unspecified; Z68.41 Body mass index [BMI] 40.0-44.9, adult; F17.210 Nicotine dependence, cigarettes, uncomplicated; Z88.5 Allergy status to narcotic agent
CPT/HCPCS: 99282; A9270

== ENCOUNTER 2020-01-21 17:16 | Emergency (ER) | payer MEDICAID ==
[2020-01-21 19:13] VITALS: BP 124/76; PULSE 82
[2020-01-21] MEDS ORDERED: diphenhydrAMINE 50 MG/ML SDV IVPUSH ONE (19:19)
[2020-01-21] MEDS ORDERED: Ondansetron 4 MG/2 ML SDV IVPUSH ONE (19:19)
[2020-01-21] MEDS ORDERED: Sodium Chloride 0.9% 1,000 ML IV ONE (19:19)
[2020-01-21] MEDS ORDERED: Ketorolac 30 MG/ML SDV IVPUSH ONE (19:19)
[2020-01-21] MEDS ORDERED: fentaNYL 100 MCG/2 ML SDV IVPUSH ONE (20:05)
--- NOTE | 2020-01-21 20:32 | EDM.PDOC ---
ED HPI GENERAL MEDICAL PROBLEM - General Chief Complaint: Headache Stated Complaint: MIGRAINE Time Seen by Provider: 01/21/20 19:10 Source of Information: Reports: Patient History Limitations: Reports: No Limitations - History of Present Illness INITIAL COMMENTS - FREE TEXT/NARRATIVE: Daily headache, worse today. Home meds not working. Vomiting. Same headache as usual. Hx migraines with aura. Light and sound sensitive. Primary point above left eyebrow. Frontal Head Pain Score (Numeric/FACES): 7 - Related Data Allergies Allergy/AdvReac Type Severity Reaction Status Date / Time hydrocodone AdvReac Intermediate Vomiting Verified 08/27/19 20:33 Home Meds: Home Meds Acetaminophen [Tylenol Arthritis] 650 mg PO Q4H PRN 11/19/18 [History] FLUoxetine HCl [Fluoxetine HCl] 40 mg PO DAILY 11/19/18 [History] Norethindrone 1 tab PO DAILY 11/19/18 [History] Past Medical History HEENT History: Reports: Impaired Vision Other HEENT History: wears glasses Cardiovascular History: Reports: None Respiratory History: Reports: Asthma Gastrointestinal History: Reports: None Other Gastrointestinal History: food poisoning Genitourinary History: Reports: UTI, Recurrent 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: , Other (See Below) Other [employer]CH[employer] SU[employer]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 History: breast abscess surgery Musculoskeletal History: Reports: Back Pain, Chronic, Other (See Below) Other Musculoskeletal History: herniated disc Neurological History: Reports: Migraines Psychiatric History: Reports: Depression Endocrine/Metabolic History: Reports: Obesity/BMI 30+ Hematologic History: Reports: None Immunologic History: Reports: None Oncologic (Cancer) History: Reports: None Dermatologic History: Reports: Chronic Cellulitis, Eczema - Infectious Disease History Infectious Disease History: Reports: None - Past Surgical History Head Surgeries/Procedures: Reports: None HEENT Surgical History: Reports: Other (See Below) Musculoskeletal Surgical History: Reports: Other (See Below) Other Musculoskeletal Surgeries/Procedures:: herniated disc repair, L) foot surgery Dermatological Surgical History: Reports: Other (See Below) Social & Family History - Family History Family Medical History: Noncontributory - Tobacco Use Tobacco Use Status *Q: Current Every Day Tobacco User Years of Tobacco use: 16 Packs/Tins Daily: 0.5 - Caffeine Use Caffeine Use: Reports: Coffee - Recreational Drug Use Recreational Drug Use: Yes Recreational Drug Type: Reports: Marijuana/Hashish - Sexual History Sexual History: Reports: Sexually Active - Living Situation & Occupation Living situation: Reports: , with Significant Other Occupation: Employed (working at [employer] for 3 years.) ED ROS GENERAL - Review of Systems Review Of Systems: Comprehensive ROS is negative, except as noted in HPI. - Physical Exam Exam: See Below Exam Limited By: No Limitations General Appearance: Alert, Mild Distress Ears: Normal External Exam Nose: Normal Inspection Throat/Mouth: Normal Inspection Head Exam: Atraumatic, Normocephalic Neck: Non-Tender, Full Range of Motion Respiratory/Chest: No Respiratory Distress, Lungs Clear, Normal Breath Sounds Cardiovascular: Regular Rate, Rhythm GI/Abdominal: Non-Tender Neuro Exam (Abbreviated): Alert, Oriented, CN II-XII Intact, Normal Cognition, Normal Gait Back Exam: Normal Inspection Extremities: Normal Inspection Psychiatric: Normal Affect, Normal Mood Skin Exam: Warm, Dry, Intact, Normal Color Course - Vital Signs Last Recorded V/S: Last Vital Signs Temp 97.5 F 01/21/20 19:08 Pulse 82 01/21/20 19:08 Resp 18 01/21/20 19:08 BP 124/76 01/21/20 19:08 Pulse Ox 98 01/21/20 19:08 - Orders/Labs/Meds Meds: Medications Discontinued Medications Generic Name Dose Route Start Last Admin Trade Name Candice PRN Reason Stop Dose Admin Diphenhydramine HCl 25 mg 01/21/20 19:19 01/21/20 19:32 Benadryl IVPUSH 01/21/20 19:20 25 mg ONETIME ONE Administration Fentanyl 50 mcg 01/21/20 20:05 01/21/20 20:12 Sublimaze IVPUSH 01/21/20 20:06 50 mcg ONETIME ONE Administration Sodium Chloride 1,000 mls @ 999 mls/hr 01/21/20 19:19 01/21/20 19:31 Normal Saline IV 01/21/20 20:19 999 mls/hr .BOLUS ONE Administration Ketorolac Tromethamine 30 mg 01/21/20 19:19 01/21/20 19:31 Toradol IVPUSH 01/21/20 19:20 30 mg ONETIME ONE Administration Ondansetron HCl 4 mg 01/21/20 19:19 01/21/20 19:32 Zofran IVPUSH 01/21/20 19:20 4 mg ONETIME ONE Administration Departure - Departure Time of Disposition: 20:31 Disposition: Home, Self-Care 01 Condition: Good Clinical Impression: Migraine - Discharge Information *PRESCRIPTION DRUG MONITORING PROGRAM REVIEWED*: No *COPY OF PRESCRIPTION DRUG MONITORING REPORT IN PATIENT DENA: No Instructions: Migraine Headache, [id number] Forms: ED Department Discharge Additional Instructions: Home medications follow up with Neurolgist as scheduled light diet advance as tolerated. rest Sepsis Event Note (ED) - Evaluation Sepsis Screening Result: No Definite Risk - Focused Exam Vital Signs: Vital Signs Temp Pulse Resp BP Pulse Ox 01/21/20 19:08 97.5 F 82 18 124/76 98
== END 2020-01-21 20:41 | disposition home or self-care (01) ==
LOC: DL.ED 17:16
DX: G43.909 Migraine, unspecified, not intractable, without status migrainosus (principal); E66.9 Obesity, unspecified; J45.909 Unspecified asthma, uncomplicated; F32.9 Major depressive disorder, single episode, unspecified; F17.210 Nicotine dependence, cigarettes, uncomplicated; Z88.5 Allergy status to narcotic agent; Z79.899 Other long term (current) drug therapy; Z68.38 Body mass index [BMI] 38.0-38.9, adult
CPT/HCPCS: 96374; 96375; 99283; J1200; J1885; J2405; J3010; J7030

== ENCOUNTER 2020-02-18 21:20 | Emergency (ER) | payer MEDICAID ==
[2020-02-18 22:39] VITALS: BP 133/78; PULSE 79
--- NOTE | 2020-02-18 22:49 | CR ---
PROCEDURE INFORMATION: Exam: XR Right Elbow Exam date and time: 02/18/2020 10:35 PM Age: 34 years old Clinical indication: Other: RT. Elbow pain after lifting magazines. TECHNIQUE: Imaging protocol: XR Right elbow. Views: 1 or 2 views. COMPARISON: No relevant prior studies available. FINDINGS: Bones/joints: Normal. Soft tissues: Normal. IMPRESSION: No acute findings.
--- NOTE | 2020-02-18 23:14 | EDM.PDOC ---
ED HPI GENERAL MEDICAL PROBLEM - General Chief Complaint: Upper Extremity Injury/Pain Stated Complaint: FELT TEAR IN ELBOW AREA LIFTING MAGAZINES Time Seen by Provider: 02/18/20 23:18 Source of Information: Reports: Patient, RN, RN Notes Reviewed History Limitations: Reports: No Limitations - History of Present Illness INITIAL COMMENTS - FREE TEXT/NARRATIVE: 34-year-old female patient presents to ER with complaint of right lateral elbow pain which began about a month ago. She states her primary told her that she had a tendinitis. Today she was lifting a stack of magazines, approximately 10 pounds, and felt a "tear" in the elbow. Rates pain 8/10, on and off tingling to the right hand. Radiates to the right shoulder from time to time. 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 Left Pain Score (Numeric/FACES): 8 - Related Data Allergies Allergy/AdvReac Type Severity Reaction Status Date / Time hydrocodone AdvReac Intermediate Vomiting Verified 02/18/20 22:38 Home Meds: Home Meds Acetaminophen [Tylenol Arthritis] 650 mg PO Q4H PRN 11/19/18 [History] Propranolol [Inderal] 40 mg PO DAILY 02/18/20 [History] Past Medical History HEENT History: Reports: Impaired Vision Other HEENT History: wears glasses Cardiovascular History: Reports: None Respiratory History: Reports: Asthma Gastrointestinal History: Reports: None Other Gastrointestinal History: food poisoning Genitourinary History: Reports: UTI, Recurrent 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: , Other (See Below) 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 History: breast abscess surgery Musculoskeletal History: Reports: Back Pain, Chronic, Other (See Below) Other Musculoskeletal History: herniated disc Neurological History: Reports: Migraines Psychiatric History: Reports: Depression Endocrine/Metabolic History: Reports: Obesity/BMI 30+ Hematologic History: Reports: None Immunologic History: Reports: None Oncologic (Cancer) History: Reports: None Dermatologic History: Reports: Chronic Cellulitis, Eczema - Infectious Disease History Infectious Disease History: Reports: None - Past Surgical History Head Surgeries/Procedures: Reports: None HEENT Surgical History: Reports: Other (See Below) Other HEENT Surgeries/Procedures: was to set up appointment, unable r/t fi nancial reasons. Ideal teeth removed x11 years ago Female Surgical History: Reports: None, Other (See Below) Musculoskeletal Surgical History: Reports: Other (See Below) Other Musculoskeletal Surgeries/Procedures:: herniated disc repair, L) foot surgery Dermatological Surgical History: Reports: Other (See Below) Social & Family History - Family History Family Medical History: No Pertinent Family History - Tobacco Use Tobacco Use Status *Q: Current Every Day Tobacco User Years of Tobacco use: 16 Packs/Tins Daily: 0.5 - Caffeine Use Caffeine Use: Reports: None - Recreational Drug Use Recreational Drug Use: No - Sexual History Sexual History: Reports: Sexually Active - Living Situation & Occupation Living situation: Reports: , with Significant Other Occupation: Employed (working at [employer] for 3 years.) Review of Systems - Review of Systems Review Of Systems: Comprehensive ROS is negative, except as noted in HPI. ED EXAM, GENERAL - Physical Exam Exam: See Below Exam Limited By: No Limitations General Appearance: Alert, WD/WN, No Apparent Distress Eye Exam: Bilateral Eye: EOMI, Normal Inspection Ears: Normal External Exam, Hearing Grossly Normal Nose: Normal Inspection Throat/Mouth: Normal Inspection, Normal Voice, No Airway Compromise Head: Atraumatic, Normocephalic Neck: Normal Inspection, Supple, Non-Tender, Full Range of Motion Respiratory/Chest: No Respiratory Distress, Lungs Clear, Normal Breath Sounds, No Accessory Muscle Use, Chest Non-Tender Cardiovascular: Normal Peripheral Pulses, Regular Rate, Rhythm, No Edema, No Gallop, No JVD, No Murmur, No Rub Peripheral Pulses: 2+: Radial (L), Radial (R) GI/Abdominal: Normal Bowel Sounds, Soft, Non-Tender (Female) Exam: Deferred Rectal (Female) Exam: Deferred Back Exam: Normal Inspection, Full Range of Motion, NT Extremities: Normal Inspection, No Pedal Edema, Normal Capillary Refill, Arm Pain (Right elbow), Limited Range of Motion (Right elbow) Neurological: Alert, Oriented, CN II-XII Intact, Normal Cognition, Normal Gait, Normal Reflexes, No Motor/Sensory Deficits Psychiatric: Normal Affect, Normal Mood Skin Exam: Warm, Dry, Intact, Normal Color, No Rash Lymphatic: No Adenopathy Course - Vital Signs Last Recorded V/S: Last Vital Signs Temp 96.8 F L 02/18/20 22:27 Pulse 79 02/18/20 22:27 Resp 16 02/18/20 22:27 BP 133/78 02/18/20 22:27 Pulse Ox 98 02/18/20 22:27 - Radiology Interpretation Free Text/Narrative:: Right Elbow xray: PROCEDURE INFORMATION: Exam: XR Right Elbow Exam date and time: 02/18/2020 10:35 PM Age: 34 years old Clinical indication: Other: RT. Elbow pain after lifting magazines. TECHNIQUE: Imaging protocol: XR Right elbow. Views: 1 or 2 views. COMPARISON: No relevant prior studies available. FINDINGS: Bones/joints: Normal. Soft tissues: Normal. IMPRESSION: No acute findings. Thank you for allowing us to participate in the care of your patient. Dictated and Authenticated by: Adithya Cole MD 02/18/2020 10:49 PM Central Time ([place] & [place]) See rad report - Re-Assessments/Exams Free Text/Narrative Re-Assessment/Exam: 02/19/20 02:32 Patient encouraged to follow-up with her primary care provider for possible MRI Departure - Departure Time of Disposition: 23:25 Disposition: Home, Self-Care 01 Condition: Good Clinical Impression: Tendonitis - Discharge Information *PRESCRIPTION DRUG MONITORING PROGRAM REVIEWED*: No *COPY OF PRESCRIPTION DRUG MONITORING REPORT IN PATIENT DENA: No Instructions: Tendinitis, [id number] Referrals: Machelle Ferreira NP [Primary Care Provider] - Forms: ED Department Discharge Additional Instructions: May use ice to the area as tolerated May use Tylenol and/or ibuprofen as directed for pain Wear sling except for while bathing and at night Wear elbow braces as well as wrist brace to minimize movement Sunday morning call to make an appointment with your primary care provider Return to the ER with any worsening of symptoms Sepsis Event Note (ED) - Evaluation Sepsis Screening Result: No Definite Risk - Focused Exam Vital Signs: Vital Signs Temp Pulse Resp BP Pulse Ox 02/18/20 22:27 96.8 F L 79 16 133/78 98
== END 2020-02-18 23:36 | disposition home or self-care (01) ==
LOC: DL.ED 21:20
DX: M77.9 Enthesopathy, unspecified (principal); J45.909 Unspecified asthma, uncomplicated; F17.210 Nicotine dependence, cigarettes, uncomplicated; E66.9 Obesity, unspecified; Z68.39 Body mass index [BMI] 39.0-39.9, adult; Z88.5 Allergy status to narcotic agent
CPT/HCPCS: 73070-RT; 99283

== ENCOUNTER 2021-01-18 09:22 | Inpatient (IN) | payer MEDICAID ==
[2021-01-18] MEDS ORDERED: Lactated Ringers 1,000 ML IV ONE (10:13)
[2021-01-18] MEDS ORDERED: Lidocaine 1% 30 ML SDV INJECT PRN (10:13)
[2021-01-18] MEDS ORDERED: Tranexamic Acid 1,000 MG in Sodium Chloride 0.9% 100 ML IV PRN (10:13)
[2021-01-18] MEDS ORDERED: Acetaminophen 325 MG Tab PO PRN (10:13)
[2021-01-18] MEDS ORDERED: Misoprostol 400 MCG (4 X 100 MCG TAB) RECTAL PRN (10:13)
[2021-01-18] MEDS ORDERED: Methylergonovine 0.2 MG/1 ML Amp IM PRN (10:13)
[2021-01-18] MEDS ORDERED: Ondansetron 4 MG/2 ML SDV IVPUSH PRN (10:13)
[2021-01-18] MEDS ORDERED: Sodium Chloride 0.9% 10 ML Syringe FLUSH PRN ×2 (10:13→18:20)
[2021-01-18] MEDS ORDERED: Carboprost Tromethamine 250 MCG/1 ML Amp IM PRN (10:13)
[2021-01-18] MEDS ORDERED: Lactated Ringers 1,000 ML IV SCH (10:15)
[2021-01-18] MEDS ORDERED: Oxytocin/Normal Saline 30 UNIT/500 ML BAG IV SCH (10:15)
[2021-01-18] MEDS ORDERED: EPINEPHrine 1 MG/ML SDV ONE ×2 (10:40→15:33)
[2021-01-18] MEDS ORDERED: fentaNYL 100 MCG/2 ML SDV ITHECAL ONE (10:40)
--- NOTE | 2021-01-18 13:33 | OBOUT ---
DATE: 01/18/2021 TIME: 11:51 to 12:11. REASON FOR NST: 1. Intrauterine at 39 weeks with strong contraction with cervical change now in labor that is established. 2. GBS negative. 3. History of gestational hypertension. 4. History of THC use earlier in the . 5. Impaired glucose tolerance. 6. G2, P1-0-0-1. NST INTERPRETATION: At this time period, heart tone baseline is approximately 140 and at least two 15 x 15 beats per minute accelerations making this strip reactive as well as reassuring. Tocometer reveals potential 8 contractions during this time period, felt by patient. ASSESSMENT: 1. Nonstress test - reactive and reassuring. 2. Tocometer without contractions. PLAN: Prior to this, blood pressure with hospital while being admitted 128/78, heart rate 84, temperature 98.6. Vaginal exam done shortly after NST performed revealed it to be 4.5 cm, 75% effaced, 0 to -1 station, vertex suspected. Artificial rupture of membranes done after discussion with patient yielding minimal amounts of clear fluid with mild bloody show/pinkish discharge. We will continue to follow clinically and closely. Please see H and P done through [employer] today while she was being evaluated at the clinic. For this, records were called for, reviewed, and supplemented by patient's history as well as review of systems reviewed now and felt to be contributory only for contractions that she felt since she has been home. She states they are noticeable, unable to rate them on a pain scale, coming every 2 to 3 minutes, felt in the lower abdomen. [facility] /[id number] NORA
[2021-01-18] MEDS ORDERED: fentaNYL 100 MCG/2 ML SDV ONE (15:33)
--- NOTE | 2021-01-18 16:27 | PCM.PRNOTE ---
- Free Text/Narrative Note: Requested to provide analgesia to full term patient in severe pain. Upon entering the room, patient is sitting on edge of bed complaining of severe abdominal/pelvic pain and discomfort. Procedure was discussed with patient including adverse outcomes and expectations. Pt consented to analgesia, SAB/IT. Pt placed into a proper sitting position. Landmarks for SAB/IT were identified and marked. Hands were washed and appropriate PPE was applied. Back was prepped with betadine x3. A sterile, transparent, fenestrated drape was applied. Excess betadine was removed. Using 3 mL of a 1% lidocaine solution, a skin wheel was placed at the L2/L3 interspace. A 24 ga (4 inch) Pencan spinal needle was inserted until positive for CSF. Negative for heme or paresthesias. Injected fentanyl 30 mcg, sufentanil 25 mcg, and 7.5 mg of a 0.75% bupivacaine solution with an epi wash. Pt was placed left lateral tilt position for approximately 20 minutes. There were zero complications or adverse outcomes. Will continue to monitor. Procedure Date & Time: 01/18/21 [id number]
[2021-01-18] MEDS ORDERED: Zolpidem 5 MG Tab PO PRN (18:20)
[2021-01-18] MEDS ORDERED: Oxytocin 10 Units/1 ML SDV IM PRN (18:20)
[2021-01-18] MEDS ORDERED: Benzocaine/Menthol 20%-0.5% Spray 78 GM Cannister TOP PRN (18:20)
[2021-01-18] MEDS ORDERED: Docusate Sodium 100 MG Cap PO PRN (18:20)
[2021-01-18] MEDS ORDERED: Simethicone 80 MG Tab.Chew PO PRN (18:20)
--- NOTE | 2021-01-18 19:45 | DEL ---
DATE: 01/18/2021 PREOPERATIVE DIAGNOSES: 1. Intrauterine at 39 weeks by 7 and 1/7 week ultrasound. 2. Contractions with cervical change with established labor upon admission. 3. GBS negative. 4. History of gestational hypertension with previous . 5. History of THC use earlier in the . 6. Impaired glucose tolerance. 7. G2, P1-0-0-1. POSTOPERATIVE DIAGNOSES: 1. Intrauterine at 39 weeks by 7 and 1/7 week ultrasound, delivered. 2. Contractions with cervical change with established labor upon admission. 3. GBS negative. 4. History of gestational hypertension with previous . 5. History of THC use earlier in the . 6. Impaired glucose tolerance. 7. G2, P1-0-0-1. 8. First-degree perineal laceration, nonbleeding, non-repaired after discussion with the patient. PROCEDURES PERFORMED: NST, artificial rupture of membranes, scalp electrode placement, Pitocin augmentation and subsequent spontaneous vaginal delivery, all on 01/18/2021. Procedure performed by Say Miguel MD. ANESTHESIA/ANALGESIA: Patient did receive an intrathecal in the first stage of labor. ESTIMATED BLOOD LOSS: 250 mL. FINDINGS: Male, score and weight pending. SUMMARY OF EVENTS: The patient is a 35-year-old G2, P1-0-0-1 intrauterine at 39 weeks by 7 and 1/7 week ultrasound, evaluated in the clinic. Prior to admission to the hospital had contraction with cervical change, and upon presentation to the hospital was found to be in labor with contractions coming at least every 2 minutes with continued cervical change and they were becoming more painful. She subsequently admitted, underwent the above procedures, received a scalp electrode to further evaluate patient's status, then received an intrathecal and had some Pitocin augmentation. Subsequently, she was found to be complete, and I was called to the room. I donned sterile gown and gloves and the patient started pushing with contractions and descent was noted. Subsequently, was noted and vertex was delivered in JONA presentation. Scalp electrode was then removed. Anterior and posterior shoulder as well as rest of the infant was delivered without difficulty. Mouth and nares were suctioned. Cord was doubly clamped and cut and infant was brought up to mother's abdomen for resuscitation. Then, approximately 10 mL of cord blood was obtained for labs. Placenta then delivered with gentle cord traction and fundal massage. Pitocin was given per protocol. Perineum, vagina and perirectal areas were examined and noted to have a small first-degree perineal laceration/abrasion, nonbleeding, non-repaired after discussion with the patient as well as an anterior abrasion that was small, nonbleeding, non-repaired after discussion with the patient. Mother and are currently stable at the time of dictation. [facility] /[id number]
[2021-01-18] MEDS: Nicotine 21 MG/24 Hr Patch TRDERM SCH (20:47)
[2021-01-18] MEDS: Ibuprofen 800 MG Tab PO PRN (20:48)
[2021-01-19] MEDS: Ibuprofen 800 MG Tab PO PRN ×2 (05:24→15:06)
--- NOTE | 2021-01-19 07:55 | PN ---
DATE: 01/18/2021 SUBJECTIVE: The patient is feeling her contractions are worsening, felt in the lower abdomen, coming every 1-1/2 to 2 to 3 minutes apart. Breathing through them, using nitrox, and defers intrathecal at this point in time. OBJECTIVE: heart tones poorly reading before this, there were some decelerations potential down to the 90s, but it was with patient sitting up, and I suspect that was patient's heart rate. Tocometer revealed contractions every 1-1/2 to 2 minutes. Vaginal exam revealed her to be 5+ cm, 85% to 90% effaced, 0 station, and vertex suspected. After discussion with patient, scalp electrode applied to further monitor baby closer and to further delineate heart tone from maternal tracing. This was subsequently done and at current time of dictation, heart tones in the 170s to 180s. ASSESSMENT: Intrauterine at 39 weeks by 7-1/7 week ultrasound. Seen earlier in the clinic. Then presented to the hospital and started into labor at that time with contractions, cervical change, and GBS negative, G2, P1-0-0-1 with history of gestational hypertension in previous , THC user early in the , and impaired glucose tolerance during this ; now status post nonstress test, artificial rupture membranes, and scalp electrode placement as above. PLAN: I did discuss with patient following maternal status closely at this time. Watching heart tone changes and changing plans accordingly as need be. The patient understands and agrees to the above treatment plan. [facility] /[id number]
[2021-01-19] MEDS: Nicotine 21 MG/24 Hr Patch TRDERM SCH (08:05)
[2021-01-19] MEDS: Prenatal Multivitamin with Calcium/Folic Acid/Iron Tab PO SCH (08:05)
--- NOTE | 2021-01-19 08:23 | PN ---
DATE: 01/19/2021 day #1. SUBJECTIVE: The patient is tolerating p.o.'s, ambulating, urinating, passing flatus. Bleeding is under control. OBJECTIVE: Vital Signs: Temperature 97.4, heart rate 78, blood pressure 124/70. Lungs: Clear to auscultation bilaterally. No increased work of breathing. Heart: S1, S2. Regular rate and rhythm. Abdomen: Firm uterus, -1 below umbilicus. Extremities: No peripheral edema. No calf pain. LABORATORY DATA: Did reveal white cell count come down to 16.2 from 17.2 yesterday, hemoglobin 12.5 today compared to 13.9 yesterday, and platelets of 199. ASSESSMENT AND PLAN: 1. day #1, status post spontaneous vaginal delivery. Appears to be doing well at this point in time. 2. Leukocytosis. This is decreasing, do not suspect overall significant infection. The patient is asymptomatic. No fevers. No uterine tenderness or other symptoms at this point in time. We will continue to follow clinically and closely. Possible discharge tomorrow, discussed with patient. She understands and agrees. [facility] /[id number]
[2021-01-19] MEDS ORDERED: Calcium Carbonate 500 MG Tab.Chew PO ONE (14:51)
[2021-01-20] MEDS: Prenatal Multivitamin with Calcium/Folic Acid/Iron Tab PO SCH (08:05)
[2021-01-20] MEDS: Ibuprofen 800 MG Tab PO PRN (08:05)
[2021-01-20] MEDS: Nicotine 21 MG/24 Hr Patch TRDERM SCH (08:05)
--- NOTE | 2021-01-20 08:28 | DISCH ---
ADMITTING DIAGNOSES: 1. Intrauterine at 39 weeks by 7 and 1/7 weeks ultrasound. 2. Contractions with cervical change with established labor upon admission. 3. GBS negative. 4. History of gestational hypertension with previous . 5. History of THC use in the . 6. Impaired glucose tolerance. 7. G2, P1-0-0-1. DISCHARGE DIAGNOSES: 1. Intrauterine at 39 weeks by 7 and 1/7 weeks ultrasound - delivered. 2. Contractions with cervical change with established labor upon admission. 3. GBS negative. 4. History of gestational hypertension with previous . 5. History of THC use in the . 6. Impaired glucose tolerance. 7. G2, P1-0-0-1. 8. First-degree perineal laceration, nonbleeding, non-repaired after discussion with the patient. PROCEDURES PERFORMED: NST, artificial rupture of membranes, scalp electrode, Pitocin augmentation, and spontaneous vaginal delivery on 01/18/[address] Miguel. HISTORY OF PRESENT ILLNESS: Please see H and P. SUMMARY OF HOSPITAL COURSE: The patient was admitted on the above date with above diagnoses, underwent the above procedures, then went on to have a spontaneous vaginal delivery yielding a male, scores of 8 and 9, weighing 6 pounds 13 ounces, (3095 g) with a small first-degree perineal laceration, nonbleeding, non-repaired after discussion with the patient. day #1, please see progress note. day #2, date of discharge, the patient was tolerating p.o., was ambulating, urinating, passing flatus, requesting discharge. PHYSICAL EXAMINATION: Vital Signs: Last set of vitals reveal a temperature of 97; heart rate 61; blood pressure 137/81, recheck 134/77; respiratory rate 16. Lungs: Clear to auscultation bilaterally. Heart: S1, S2. Regular rate and rhythm. Abdomen: Firm uterus. -1 below umbilicus. Extremities: No peripheral edema. No calf pain. LABORATORY DATA: Labs were followed. White cell count initially was 17.2 upon admission. day #1, was decreasing to 16.2. No signs or symptoms of infection. Hemoglobin 13.9 predelivery, 12.5 post delivery. CONDITION ON DISCHARGE COMPARED TO CONDITION ON ADMISSION: Improved. DISCHARGE INSTRUCTIONS: 1. Diet as tolerated. 2. Activity: No lifting more than 20 pounds. No sit-ups or straining. Pelvic rest for the next 6 weeks with immediate return to fertility discussed with the patient. 3. Reasons to return or go to the emergency room discussed with the patient in detail including but not limited to temperature greater than 100.4; foul- smelling discharge; red, hot, or tender breasts; increased vaginal bleeding. DISCHARGE MEDICATIONS: Enaj-woa-dtrpyvy Tylenol and ibuprofen for pain, vitamins for 6 weeks. FOLLOWUP: 6 weeks . Did discuss with the patient in the interim reasons to return or go to emergency room in regard to her infant with followup for her baby on Sunday, that would be January 24, 2021, in the clinic. She understands and agrees with the above treatment plan. Please see discharge paperwork for further details as well. [facility] /[id number]
[2021-01-20 09:17] VITALS: BP 137/84; PULSE 79
== END 2021-01-20 10:00 | disposition home or self-care (01) | DRG 807 ==
LOC: DL.OB 11:04 → OBSVTOIN 18:03 → DL.OB 18:03
PROVIDERS: ADMIT Family Medicine; ATTEND Family Medicine
PROC: 10E0XZZ Delivery of Products of Conception, External Approach (ICD-10-PCS; principal; 2021-01-18)
PROC: 10907ZC Drainage of Amniotic Fluid, Therapeutic from Products of Conception, Via Natural or Artificial Opening (ICD-10-PCS; 2021-01-18)
DX: O99.214 Obesity complicating childbirth (principal); Z37.0 Single live birth; Z3A.39 39 weeks gestation of pregnancy; O70.0 First degree perineal laceration during delivery; Z20.822 Contact with and (suspected) exposure to COVID-19; E66.01 Morbid (severe) obesity due to excess calories
CPT/HCPCS: 01967; 36415; 59409; 85027; A9270-GY; J0171; J2405; J2590; J3010; J7120; U0002

== ENCOUNTER 2021-04-20 08:48 | Emergency (ER) | payer MEDICAID ==
[2021-04-20 09:17] VITALS: BP 132/97; PULSE 89
[2021-04-20 09:43] LABS: ANION GAP 14.6 mEq/L (7-13); CHLORIDE,CL 103 mmol/L (98-107); SODIUM,NA 141 mmol/L (136-145)
[2021-04-20 11:18] LABS: AMPHETAMINES,URINE NEGATIVE (NEGATIVE); BARBITURATES,URINE NEGATIVE (NEGATIVE); BENZODIAZEPINE,URINE NEGATIVE (NEGATIVE); MDMA (ECSTASY), URINE NEGATIVE (NEGATIVE); METHADONE,URINE NEGATIVE (NEGATIVE); METHAMPHETAMINES,URINE NEGATIVE (NEGATIVE); OPIATES,URINE NEGATIVE (NEGATIVE); OXYCODONE,URINE NEGATIVE (NEGATIVE); PHENCYCLIDINE,URINE NEGATIVE (NEGATIVE); TCA,URINE NEGATIVE (NEGATIVE)
== END 2021-04-20 11:34 | disposition home or self-care (01) ==
LOC: DL.ED 08:48
DX: N94.6 Dysmenorrhea, unspecified (principal); N92.0 Excessive and frequent menstruation with regular cycle; Z88.5 Allergy status to narcotic agent; Z79.82 Long term (current) use of aspirin
CPT/HCPCS: 36415; 76830; 80053; 80305-QW; 81001; 81025; 85025; 86140; 93975; 99284-25

== ENCOUNTER 2021-07-06 21:49 | Emergency (ER) | payer MEDICAID ==
[2021-07-06] MEDS ORDERED: Ketorolac 30 MG/ML SDV IM ONE (22:32)
[2021-07-06] MEDS ORDERED: methylPREDNISolone Sodium Succinate 125 MG/2 ML SDV IM ONE (22:33)
[2021-07-06 23:26] VITALS: BP 110/66; PULSE 84
== END 2021-07-06 23:10 | disposition home or self-care (01) ==
LOC: DL.ED 21:49
DX: M54.42 Lumbago with sciatica, left side (principal); E66.9 Obesity, unspecified; Z68.35 Body mass index [BMI] 35.0-35.9, adult; Z88.5 Allergy status to narcotic agent; Z79.82 Long term (current) use of aspirin
CPT/HCPCS: 96372; 99283; J1885; J2930

== ENCOUNTER 2022-02-21 11:25 | Emergency (ER) | payer MEDICAID ==
[2022-02-21 11:49] VITALS: BP 131/99; PULSE 90
== END 2022-02-21 12:46 | disposition home or self-care (01) ==
LOC: DL.ED 11:25
DX: S49.91XA Unspecified injury of right shoulder and upper arm, initial encounter (principal); J45.909 Unspecified asthma, uncomplicated; E66.9 Obesity, unspecified; Z68.35 Body mass index [BMI] 35.0-35.9, adult; Z88.5 Allergy status to narcotic agent; Z79.82 Long term (current) use of aspirin; Z79.899 Other long term (current) drug therapy; W00.0XXA Fall on same level due to ice and snow, initial encounter
CPT/HCPCS: 73030-RT; 99283

== ENCOUNTER 2022-06-09 06:41 | Emergency (ER) | payer MEDICAID ==
[2022-06-09] MEDS ORDERED: HYDROmorphone 1 MG/ML Syringe IVPUSH ONE (07:11)
[2022-06-09] MEDS ORDERED: HYDROmorphone 0.5 MG/0.5 ML Syringe IVPUSH ONE (08:06)
[2022-06-09] MEDS ORDERED: Ketorolac 30 MG/ML SDV IVPUSH ONE (08:07)
[2022-06-09 09:51] LABS: ANION GAP 10.3 mEq/L (7-13)
[2022-06-09 09:59] VITALS: BP 137/102; PULSE 75
== END 2022-06-09 10:13 | disposition home or self-care (01) ==
LOC: DL.ED 06:41
DX: G89.18 Other acute postprocedural pain (principal); M25.511 Pain in right shoulder; E66.9 Obesity, unspecified; Z68.36 Body mass index [BMI] 36.0-36.9, adult; Z88.5 Allergy status to narcotic agent; Z79.82 Long term (current) use of aspirin
CPT/HCPCS: 36415; 80053; 96374; 96375; 96376; 99283; 99283-25; J1170; J1885

== ENCOUNTER 2022-06-27 10:31 | Emergency (ER) | payer MEDICAID | END 2022-06-27 11:35 | disposition left against medical advice (07) | LOC: DL.ED 10:31 | DX: Z53.21 Procedure and treatment not carried out due to patient leaving prior to being seen by health care provider (principal) ==

== ENCOUNTER 2023-09-29 20:51 | Emergency (ER) | payer MEDICAID ==
[2023-09-29 21:21] LABS: BASOPHILS PERCENT AUTO 0.2 % (0.0-1.0); EOSINOPHILS PERCENT AUTO 5.7 % (1.0-3.0); HEMATOCRIT 42.4 % (37.0-47.0); LYMPHOCYTES PERCENT AUTO 26.9 % (20.5-50.1); MEAN CORPUSCULAR HEMOGLOBIN 29.9 pg (27.0-34.0); MEAN CORPUSCULAR VOLUME 90.6 fL (80-100); MONOCYTES PERCENT AUTO 6.6 % (2-8); NEUTROPHILS PERCENT AUTO 60.6 % (42.2-75.2); PLATELET COUNT,PLT 254 10^3/uL (150-450); RED BLOOD CELL COUNT 4.68 10^6/uL (4.2-5.4); WHITE BLOOD CELL COUNT,WBC 13.2 10^3/uL (5.0-10.0)
[2023-09-29 21:23] VITALS: BP 135/90; PULSE 81
[2023-09-29] MEDS: Ketorolac 30 MG/ML SDV IVPUSH ONE (21:28)
[2023-09-29 21:35] LABS: HCG QUALITATIVE,SERUM NEGATIVE (NEGATIVE)
[2023-09-29 21:39] LABS: ALANINE AMINOTRANSFERASE,ALT 16 U/L (14-59); ALBUMIN 3.7 g/dL (3.4-5.0); ALKALINE PHOSPHATASE 79 U/L (46-116); ANION GAP 9.8 mEq/L (7-13); ASPARTATE AMNIOTRANSFERASE,AST 10 U/L (15-37); BILIRUBIN TOTAL 0.3 mg/dL (0.2-1.0); BLOOD UREA NITROGEN,BUN 7 mg/dL (7-18); BUN/CREATININE RATIO 7.4 (No establ ref range); C-REACTIVE PROTEIN 0.75 ng/dL (<=0.50); CALCIUM 9.1 mg/dL (8.5-10.1); CARBON DIOXIDE,CO2 30 mmol/L (21-32); CHLORIDE,CL 101 mmol/L (98-107); CREATININE 0.95 mg/dL (0.55-1.02); GLUCOSE RANDOM 90 mg/dL (70-99); POTASSIUM,K 3.8 mmol/L (3.5-5.1); PROTEIN TOTAL,TP 7.4 g/dL (6.4-8.2); SODIUM,NA 137 mmol/L (136-145)
[2023-09-29 21:52] LABS: ESTIMATED GFR 79 mL/min (>=60)
== END 2023-09-29 22:09 | disposition home or self-care (01) ==
LOC: DL.ED 20:51
DX: S29.011A Strain of muscle and tendon of front wall of thorax, initial encounter (principal); J45.909 Unspecified asthma, uncomplicated; F17.210 Nicotine dependence, cigarettes, uncomplicated; Z88.8 Allergy status to other drugs, medicaments and biological substances; Z79.51 Long term (current) use of inhaled steroids; Z79.899 Other long term (current) drug therapy; Z86.16 Personal history of COVID-19; X50.1XXA Overexertion from prolonged static or awkward postures, initial encounter; Y93.89 Activity, other specified
CPT/HCPCS: 36415; 80053; 83735; 84484; 84703; 85025; 86140; 93005; 96374; 99285; J1885

== ENCOUNTER 2024-01-15 19:56 | Emergency (ER) | payer MEDICAID ==
[2024-01-15 20:09] VITALS: BP 132/96; PULSE 94
[2024-01-15] MEDS: Lidocaine 2% 20 ML MDV ONE (20:17)
[2024-01-15] MEDS: Dexamethasone 4 MG/ML SDV IM ONE (20:46)
== END 2024-01-15 20:53 | disposition home or self-care (01) ==
LOC: DL.ED 19:56
DX: G43.809 Other migraine, not intractable, without status migrainosus (principal); J45.909 Unspecified asthma, uncomplicated; E66.9 Obesity, unspecified; Z68.38 Body mass index [BMI] 38.0-38.9, adult; Z86.16 Personal history of COVID-19; Z88.5 Allergy status to narcotic agent; Z79.82 Long term (current) use of aspirin; Z79.899 Other long term (current) drug therapy; Z79.891 Long term (current) use of opiate analgesic
CPT/HCPCS: 96372; 99283; J1100; J3490

== ENCOUNTER 2024-01-16 04:00 | Emergency (ER) | payer MEDICAID ==
[2024-01-16] MEDS ORDERED: Sodium Chloride 0.9% 10 ML Syringe FLUSH PRN (04:25)
[2024-01-16] MEDS: diphenhydrAMINE 50 MG/ML SDV IVPUSH ONE (04:39)
[2024-01-16] MEDS: Metoclopramide 10 MG/2 ML SDV IVPUSH ONE (04:39)
[2024-01-16] MEDS: Ketorolac 30 MG/ML SDV IVPUSH ONE (04:39)
[2024-01-16] MEDS: Sodium Chloride 0.9% 1,000 ML IV ONE (04:43)
[2024-01-16 04:51] VITALS: BP 126/76
[2024-01-16 05:19] VITALS: PULSE 89
== END 2024-01-16 05:50 | disposition home or self-care (01) ==
LOC: DL.ED 04:00
DX: G43.909 Migraine, unspecified, not intractable, without status migrainosus (principal); J45.909 Unspecified asthma, uncomplicated; E66.9 Obesity, unspecified; Z86.16 Personal history of COVID-19; F17.210 Nicotine dependence, cigarettes, uncomplicated; Z79.899 Other long term (current) drug therapy; Z88.5 Allergy status to narcotic agent
CPT/HCPCS: 96361; 96374; 96375; 99283; J1200; J1885; J2765; J7030

== ENCOUNTER 2024-04-17 04:05 | Emergency (ER) | payer MEDICAID ==
[2024-04-17] MEDS ORDERED: Ondansetron 4 MG in Sodium Chloride 0.9% 50 ML IV ONE (04:30)
[2024-04-17] MEDS: Morphine 4 MG/ML Syringe IVPUSH ONE (04:46)
[2024-04-17] MEDS: Ondansetron 4 MG/2 ML SDV IVPUSH ONE (04:46)
[2024-04-17 04:47] LABS: BASOPHILS PERCENT AUTO 0.2 % (0.0-1.0); HEMATOCRIT 44.9 % (37.0-47.0); HEMOGLOBIN 14.3 g/dL (12.0-16.0); LYMPHOCYTES PERCENT AUTO 17.5 % (20.5-50.1); MEAN CORPUSCULAR HEMOGLOBIN 29.6 pg (27.0-34.0); MEAN CORPUSCULAR HGB CONC 31.8 g/dL (33.0-35.0); MONOCYTES PERCENT AUTO 13.5 % (2-8); NEUTROPHILS PERCENT AUTO 65.8 % (42.2-75.2); PLATELET COUNT,PLT 244 10^3/uL (150-450); RED BLOOD CELL COUNT 4.83 10^6/uL (4.2-5.4); WHITE BLOOD CELL COUNT,WBC 9.3 10^3/uL (5.0-10.0)
[2024-04-17] MEDS: Iopamidol 612 MG/ML 100 ML Bottle IVPUSH ONE (04:54)
[2024-04-17 05:04] LABS: A/G RATIO 0.9; ALBUMIN 3.6 g/dL (3.4-5.0); ANION GAP 13.2 mEq/L (7-13); BILIRUBIN TOTAL 0.3 mg/dL (0.2-1.0); BUN/CREATININE RATIO 11.7 (No establ ref range); CALCIUM 8.9 mg/dL (8.5-10.1); CREATININE 0.94 mg/dL (0.55-1.02); EST CRCL DRUG DOSING (CG) 75.96 mL/min; POTASSIUM,K 4.2 mmol/L (3.5-5.1); PROTEIN TOTAL,TP 7.4 g/dL (6.4-8.2)
[2024-04-17 07:38] VITALS: BP 128/94; PULSE 75
[2024-04-17 07:51] LABS: APPEARANCE,URINE CLEAR (CLEAR); BILIRUBIN,URINE NEGATIVE (NEGATIVE); COLOR,URINE YELLOW (YELLOW); GLUCOSE,URINE NEGATIVE (NEGATIVE); KETONES,URINE NEGATIVE (NEGATIVE); LEUKOCYTE ESTERASE,URINE NEGATIVE (NEGATIVE); NITRITE,URINE NEGATIVE (NEGATIVE); OCCULT BLOOD,URINE MODERATE (NEGATIVE); PROTEIN,URINE NEGATIVE (NEGATIVE); UROBILINOGEN,URINE 0.2 mg/dL (0.2-1.0)
[2024-04-17 08:03] LABS: BACTERIA,URINE FEW /HPF (0-FEW/HPF); EPITHELIAL CELLS,URINE FEW /HPF (NOT SEEN); MUCUS,URINE RARE /LPF (NOT SEEN); WBC,URINE 0-5 /HPF (0-5/HPF)
== END 2024-04-17 08:15 | disposition home or self-care (01) ==
LOC: DL.ED 04:05
DX: N13.2 Hydronephrosis with renal and ureteral calculous obstruction (principal); J45.909 Unspecified asthma, uncomplicated; E66.9 Obesity, unspecified; F17.210 Nicotine dependence, cigarettes, uncomplicated; Z88.8 Allergy status to other drugs, medicaments and biological substances; Z79.899 Other long term (current) drug therapy; Z86.16 Personal history of COVID-19; Z68.38 Body mass index [BMI] 38.0-38.9, adult
CPT/HCPCS: 36415; 74178; 80053; 81001; 83690; 84703; 85025; 96374; 96375; 99284; J2270; J2405; Q9967

== ENCOUNTER 2024-07-03 10:55 | Emergency (ER) | payer MEDICAID ==
[2024-07-03 11:12] VITALS: BP 122/84; PULSE 90
[2024-07-03] MEDS ORDERED: Sodium Chloride 0.9% 10 ML Syringe FLUSH PRN (11:33)
[2024-07-03 11:48] LABS: BASOPHILS PERCENT AUTO 0.2 % (0.0-1.0); EOSINOPHILS PERCENT AUTO 5.9 % (1.0-3.0); HEMATOCRIT 48.1 % (37.0-47.0); HEMOGLOBIN 15.3 g/dL (12.0-16.0); LYMPHOCYTES PERCENT AUTO 26.2 % (20.5-50.1); MEAN CORPUSCULAR HEMOGLOBIN 29.5 pg (27.0-34.0); MEAN CORPUSCULAR HGB CONC 31.8 g/dL (33.0-35.0); MEAN CORPUSCULAR VOLUME 92.9 fL (80-100); MONOCYTES PERCENT AUTO 10.4 % (2-8); NEUTROPHILS PERCENT AUTO 57.3 % (42.2-75.2); PLATELET COUNT,PLT 264 10^3/uL (150-450); RED BLOOD CELL COUNT 5.18 10^6/uL (4.2-5.4); WHITE BLOOD CELL COUNT,WBC 9.7 10^3/uL (5.0-10.0)
[2024-07-03] MEDS: Albuterol/Ipratropium 3.0-0.5 MG/3 ML Neb Soln NEB ONE (11:55)
[2024-07-03] MEDS: Albuterol 0.083% 2.5 MG/3 ML Neb Soln NEB ONE (12:07)
[2024-07-03 12:18] LABS: ALBUMIN 3.9 g/dL (3.4-5.0); ANION GAP 14.3 mEq/L (7-13); BILIRUBIN TOTAL 0.4 mg/dL (0.2-1.0); C-REACTIVE PROTEIN 0.99 ng/dL (<=0.50); CALCIUM 9.3 mg/dL (8.5-10.1); CREATININE 0.87 mg/dL (0.55-1.02); EST CRCL DRUG DOSING (CG) 82.08 mL/min; MAGNESIUM 2.1 mg/dL (1.8-2.4); POTASSIUM,K 4.3 mmol/L (3.5-5.1)
[2024-07-03 12:41] LABS: APPEARANCE,URINE CLEAR (CLEAR); COLOR,URINE YELLOW (YELLOW)
[2024-07-03 12:42] LABS: BILIRUBIN,URINE NEGATIVE (NEGATIVE); GLUCOSE,URINE NEGATIVE (NEGATIVE); KETONES,URINE NEGATIVE (NEGATIVE); LEUKOCYTE ESTERASE,URINE TRACE (NEGATIVE); NITRITE,URINE NEGATIVE (NEGATIVE); OCCULT BLOOD,URINE NEGATIVE (NEGATIVE); PH,URINE 6.5 (5.0-9.0); PROTEIN,URINE NEGATIVE (NEGATIVE); UROBILINOGEN,URINE 0.2 mg/dL (0.2-1.0)
[2024-07-03 12:49] LABS: EPITHELIAL CELLS,URINE FEW /HPF (NOT SEEN); RBC,URINE 0-5 /HPF (0-5); WBC,URINE 0-5 /HPF (0-5/HPF)
[2024-07-03 12:50] LABS: AMORPHOUS SEDIMENT,URINE FEW /HPF (NOT SEEN); BACTERIA,URINE FEW /HPF (0-FEW/HPF); MUCUS,URINE MODERATE /LPF (NOT SEEN)
[2024-07-03] MEDS: Ketorolac 30 MG/ML SDV IVPUSH ONE (13:03)
== END 2024-07-03 13:14 | disposition home or self-care (01) ==
LOC: DL.ED 10:55
DX: M54.50 Low back pain, unspecified (principal); J45.909 Unspecified asthma, uncomplicated; E66.9 Obesity, unspecified; Z88.8 Allergy status to other drugs, medicaments and biological substances; Z79.899 Other long term (current) drug therapy; Z86.16 Personal history of COVID-19; Z68.38 Body mass index [BMI] 38.0-38.9, adult
CPT/HCPCS: 71046; 74176; 80053; 81001; 81025; 83735; 85025; 86140; 87086; 87088; 87186; 94640; 96374; 99283; 99284-25; A9270-GY; J1885

== ENCOUNTER 2024-09-09 08:53 | Emergency (ER) | payer MEDICAID ==
[2024-09-09 09:09] VITALS: BP 119/63; PULSE 91
[2024-09-09] MEDS: diazePAM 5 MG Tab PO ONE (09:24)
== END 2024-09-09 09:32 | disposition home or self-care (01) ==
LOC: DL.ED 08:53
DX: M54.50 Low back pain, unspecified (principal); F17.200 Nicotine dependence, unspecified, uncomplicated; E66.9 Obesity, unspecified; Z88.8 Allergy status to other drugs, medicaments and biological substances; Z79.899 Other long term (current) drug therapy; Z86.16 Personal history of COVID-19
CPT/HCPCS: 99283; A9270-GY

== ENCOUNTER 2024-10-21 08:43 | Emergency (ER) | payer MEDICAID ==
[2024-10-21 09:17] VITALS: BP 119/84; PULSE 96
== END 2024-10-21 09:26 | disposition home or self-care (01) ==
LOC: DL.ED 08:43
DX: M47.26 Other spondylosis with radiculopathy, lumbar region (principal); Z88.5 Allergy status to narcotic agent; Z86.16 Personal history of COVID-19
CPT/HCPCS: 99283

== ENCOUNTER 2024-12-30 16:35 | Emergency (ER) | payer MEDICAID ==
[2024-12-30 16:53] VITALS: BP 131/85; PULSE 70
[2024-12-30] MEDS ORDERED: Sodium Chloride 0.9% 10 ML Syringe FLUSH PRN (17:08)
[2024-12-30] MEDS ORDERED: Ondansetron 4 MG/2 ML SDV IVPUSH ONE (17:08)
[2024-12-30] MEDS: diphenhydrAMINE 50 MG/ML SDV IVPUSH ONE (17:29)
[2024-12-30] MEDS: Ketorolac 30 MG/ML SDV IVPUSH ONE (17:29)
== END 2024-12-30 18:14 | disposition home or self-care (01) ==
LOC: DL.ED 16:35
DX: G43.809 Other migraine, not intractable, without status migrainosus (principal); Z88.5 Allergy status to narcotic agent; Z79.899 Other long term (current) drug therapy; Z86.16 Personal history of COVID-19
CPT/HCPCS: 96361; 96374; 96375; 99282; 99283; J1200; J1885; J2765; J7030